=== PATIENT | female | born 1960 | race Caucasian/White ===

== ENCOUNTER → 2017-09-05 11:30 | Outpatient (CLI) | payer OTHER, SELFPAY ==
[2017-09-10 17:16] LABS: HPV Reflexed? NOT INDICATED
== END ==
PROVIDERS: Visit Provider Obstetrics & Gynecology
DX: Z12.4 Encounter for screening for malignant neoplasm of cervix (principal)
CPT/HCPCS: 88175; G0145

== ENCOUNTER → 2017-09-25 10:53 | Outpatient (CLI) | payer OTHER, SELFPAY ==
--- NOTE | 2017-09-25 10:55 | US_ITS ---
STUDY: ULTRASOUND BREAST - LEFT REASON FOR EXAM: Female, 56 years old. Pain in the left breast. TECHNIQUE: Axial and longitudinal images of the LEFT breast were performed with a high resolution ultrasound transducer. COMPARISON: Comparison is made with prior mammogram dated June 13, 2017. FINDINGS: LEFT Breast: The upper lateral aspect of the left breast was examined by ultrasound. There is a homogeneous fibroglandular tissue. No solid or cystic mass lesion is seen. US/Breast Limited Unilateral IMPRESSION: Unremarkable sonographic examination of the breast. ASSESSMENT CATEGORY: BIRADS Category 1: Negative. A letter regarding these results will be sent to the patient by the facility within 30 days. Electronically Signed: Hao Avendano MD at 12:41 EDT Tel [phone], Service support ,
== END ==
PROVIDERS: Family Provider Family Medicine; PCP Family Medicine; Visit Provider Surgery
DX: N64.4 Mastodynia (principal)
CPT/HCPCS: 76642

== ENCOUNTER → 2017-12-18 11:05 | Outpatient (CLI) | payer OTHER, SELFPAY ==
--- NOTE | 2017-12-18 11:05 | DT_ITS ---
This patient was seen during an EMR downtime December 16, 2017 - December 23, 2017. This patient may have a combination of paper and electronic documentation or all paper documentation. All documentation is viewable within the e-chart portion of [facility] for each patient visit.
[2017-12-23 12:25] LABS: Vitamin B12 508 pg/mL (211-911); Vitamin D,25 Hydroxy 23.1 ng/mL (29.95-100.01)
[2017-12-24 17:49] LABS: Hematocrit 45.1 % (37-47); Hemoglobin 14.8 g/dl (12.0-15.0); Mean Corp Hgb Conc 32.8 g/gl (32-36); Mean Corpuscular Hgb 30.6 pg (27.0-32.0); Mean Corpuscular Volume 93.4 fL (81-99); Mean Platelet Vol. 11.5 fl (6.2-12.0); Platelet Count 207 K/mm3 (150-450); RBC Distribution Width CV 12.8 % (11.6-14.6); RBC Distribution Width SD 42.9 fl (35.1-43.9); Red Blood Count 4.83 M/mm3 (4.2-5.4); Scan Indicated on CBC? Y/N NO; White Blood Count 4.6 K/mm3 (4.4-11.0)
[2017-12-24 17:51] LABS: BUN 11 mg/dL (7-18); BUN/Creat Ratio 15.9 RATIO (10-20); Creatinine, Serum 0.69 mg/dL (0.55-1.02); EST Glomerular Filtration Rate 94 mL/min (>60); Est Glom Filt Rate - Afr Amer 114 mL/min (>60); Globulin 3.9 g/dL (2.2-4.2); Glucose 87 mg/dL (74-106); Protein, Total 7.9 g/dL (6.4-8.2)
[2017-12-24 17:52] LABS: AST(SGOT) 23 U/L (15-37); Alanine Aminotransfer ALT/SGPT 37 U/L (13-56); Alkaline Phosphatase 65 U/L (45-117); Anion Gap 7 (5-15); Chloride 103 mmol/L (98-107); Cholesterol 245 mg/dL (200); High Density Lipoprotein 58 mg/dL; Magnesium 2.2 mg/dL (1.6-2.6); Sodium Level 139 mmol/L (136-145); Thyroid Stim Hormone (TSH) 1.02 uIU/mL (0.358-3.74); Triglycerides 176 mg/dL; Very Low Density Lipoprotein 35 mg/dL (5-40)
== END ==
PROVIDERS: Family Provider Family Medicine; PCP Family Medicine; Visit Provider Family Medicine
DX: R53.83 Other fatigue (principal); I10 Essential (primary) hypertension; R00.2 Palpitations
CPT/HCPCS: 36415; 80053; 80061; 82306; 82607; 83735; 84443; 85027

== ENCOUNTER → 2018-01-13 06:02 | Outpatient (CLI) | payer OTHER, SELFPAY ==
--- NOTE | 2018-01-13 09:59 | STRESSREP ---
Stress Test Report Exercise myocardial perfusion stress test. 57-year-old lady with a history of hypertension. Medications: Vitamins. Stress protocol: Normal sinus rhythm with rate of [address] changes noted resting blood pressures 142/90 mmHg. The patient exercised according to the regular Liam protocol for a total duration of 5 minutes and 31 seconds. Patient completed 2 minutes and 31 seconds to stage II of the Liam protocol. The maximum heart rate attained was 157 beats minute which is 96% of maximum heart rate excellent workload attained was 7 metabolic equivalents. At rest nonspecific ST-T wave changes were noted at peak exercise upsloping ST changes were noted with ST depression approximately 0.7 mm in the inferior leads with upsloping changes not diagnostic of ischemia. The resting blood pressure is 142/90 mmHg with a peak blood pressure 190/9074 mmHg rate pressure product was 29,800. Myocardial perfusion protocol. 14.8 mCi of technetium 99m sestamibi was injected at rest. Patient exercised according to regular Liam protocol for 5 minutes and 31 seconds at peak exercise 44.7 mCi of technetium 99m sestamibi was injected stress images were obtained stress and rest images were reconstructed and compared in the short axis vertical long horizontal long axis. Gated images were also obtained. Perfusion stress analysis; Review of the stress images demonstrate normal uptake of tracer noted in all areas of the myocardium. The resting images similarly demonstrate normal uptake of tracer noted in all areas of the myocardium. No areas of reversibility are noted suggest ischemia and no previous infarct is noted. Gated SPECT analysis: The gated ejection fraction is 75%. Conclusion: Normal exercise myocardial perfusion stress test at a moderate workload. No clinical angina noted Preserved ejection fraction.
--- NOTE | 2018-01-13 10:19 | STRESSREP_ITS ---
Stress Test Report Exercise myocardial perfusion stress test. 57-year-old lady with a history of hypertension. Medications: Vitamins. Stress protocol: Normal sinus rhythm with rate of [address] changes noted resting blood pressures 142/90 mmHg. The patient exercised according to the regular Liam protocol for a total duration of 5 minutes and 31 seconds. Patient completed 2 minutes and 31 seconds to stage II of the Liam protocol. The maximum heart rate attained was 157 beats minute which is 96% of maximum heart rate excellent workload attained was 7 metabolic equivalents. At rest nonspecific ST-T wave changes were noted at peak exercise upsloping ST changes were noted with ST depression approximately 0.7 mm in the inferior leads with upsloping changes not diagnostic of ischemia. The resting blood pressure is 142 /90 mmHg with a peak blood pressure 190/9074 mmHg rate pressure product was 29, 800. Myocardial perfusion protocol. 14.8 mCi of technetium 99m sestamibi was injected at rest. Patient exercised according to regular Liam protocol for 5 minutes and 31 seconds at peak exercise 44.7 mCi of technetium 99m sestamibi was injected stress images were obtained stress and rest images were reconstructed and compared in the short axis vertical long horizontal long axis. Gated images were also obtained. Perfusion stress analysis; Review of the stress images demonstrate normal uptake of tracer noted in all areas of the myocardium. The resting images similarly demonstrate normal uptake of tracer noted in all areas of the myocardium. No areas of reversibility are noted suggest ischemia and no previous infarct is noted. Gated SPECT analysis: The gated ejection fraction is 75%. Conclusion: Normal exercise myocardial perfusion stress test at a moderate workload. No clinical angina noted Preserved ejection fraction.
== END ==
PROVIDERS: Family Provider Family Medicine; PCP Family Medicine; Visit Provider Family Medicine
DX: I10 Essential (primary) hypertension (principal)
CPT/HCPCS: 78452; 93017; A9500; A4216

== ENCOUNTER 2018-06-09 06:58 | Day surgery (SDC) | payer OTHER, SELFPAY ==
[2018-06-09 07:15] VITALS: BP 126/82; PULSE 76; RESP 16; TEMP 37.1; O2SAT 100; BMI 32.8
--- NOTE | 2018-06-09 08:25 | PCM.HP.STD ---
Problem List (1) Screening for colon cancer Status: Acute History of Present Illness Date of Admission: 06/09/18 The patient is a 57 year old F who presents for screening colonoscopy. It has been 12 years since I did her last scope. Past Medical History Medical History: Medical History (Last Reviewed 06/09/18 @ 08:26 by Tha Felipe MD) No pertinent past medical history Allergies Sulfa (Sulfonamide Antibiotics) Allergy (Mild, Verified 06/04/18 09:30) rash Home Medications: Ambulatory Orders Medication Instructions Recorded Atorvastatin Calcium [Lipitor] 20 mg PO QHS 06/04/18 Losartan Potassium [Cozaar] 50 mg PO DAILY 06/04/18 Surgical History: Surgical History (Last Reviewed 06/09/18 @ 08:26 by Tha Felipe MD) History of surgical removal of skin lesion Z98.890, Z87.2 S/P colonoscopy Z98.890 S/P hysterectomy Z90.710 Smoking Status: Former smoker - *Family History Maternal Family History: Family History (Last Updated 09/24/17 @ 09:21 by Aracelis De La Cruz) Daughter Breast cancer Father Diabetes Mother Diabetes Heart disease History Items: No pertinent history Review of Systems Cardiovascular: Denies: Chest Pain, Chest Pressure, Chest Tightness, Palpitations Respiratory: Denies: Cough, Hemoptysis, Shortness of breath at rest, Shortness of breath upon exertion, Wheezing Gastrointestinal: Denies: Abdominal Pain, Constipation, Diarrhea, Hematemesis, Nausea, Melena, Vomiting VTE Information - Inpt Only VTE Present on Admission: No VTE Mechan Device Prophylaxis: None VTE Pharm Prophylaxis ordered?: No Reason prophylaxis not ordered:: Treatment Not Indicated Patient Problems: Active and Suspected Problems (Last Updated 09/24/17 @ 09:21 by Aracelis De La Cruz) Screening for colon cancer (Acute) - Physical Exam Lungs: Clear to auscultation Cardiovascular: Regular rate, Regular Rhythm, No murmurs Abdomen: Bowel Sounds Present, Soft, Non Tender, Non-Distended Vital Signs Temp Pulse Resp BP Pulse Ox 98.7 F 76 16 126/82 H 100 06/09/18 07:15 06/09/18 07:15 06/09/18 07:15 06/09/18 07:15 06/09/18 07:15 Oxygen Delivery Method Room Air Weight: 225 lb 1.471 oz Body Mass Index (BMI) 32.8 Assessment/Plan All Active Problems (Last Updated 09/24/17 @ 09:21 by Aracelis De La Cruz) Screening for colon cancer (Acute) My plan is to perform a screening colonoscopy on her.
[2018-06-09 08:26] VITALS: BP 119/49; BP 126/82; PULSE 83; RESP 16; TEMP 36.9; O2SAT 98
[2018-06-09 08:30] VITALS: BP 112/62; BP 126/82; PULSE 82; RESP 16; O2SAT 97
--- NOTE | 2018-06-09 08:30 | OP.ENDO_ITS ---
Patient Name: Anne Marie Cerna Procedure Date: 06/09/2018 8:02 AM Date of : 1960 Age: 57 Procedure: Colonoscopy Indications: Screening for colorectal malignant neoplasm Providers: Tha Felipe MD Medicines: See the Anesthesia note for documentation of the administered medications Patient Profile: This is a 57 year old female. Refer to note in patient chart for documentation of history and physical. Last Colonoscopy: more than 10 years ago. Complications: No immediate complications. Procedure: Pre-Anesthesia Assessment: - Prior to the procedure, a History and Physical was performed, and patient medications and allergies were reviewed. The patient's tolerance of previous anesthesia was also reviewed. The risks and benefits of the procedure and the sedation options and risks were discussed with the patient. All questions were answered, and informed consent was obtained. Prior Anticoagulants: The patient has taken no previous anticoagulant or antiplatelet agents. ASA Grade Assessment: III - A patient with severe systemic disease. After reviewing the risks and benefits, the patient was deemed in satisfactory condition to undergo the procedure. After I obtained informed consent, the scope was passed under direct vision. Throughout the procedure, the patient's blood pressure, pulse, and oxygen saturations were monitored continuously. The Colonoscope was introduced through the anus and advanced to the cecum, identified by appendiceal orifice and ileocecal valve. The colonoscopy was performed without difficulty. The patient tolerated the procedure well. The quality of the bowel preparation was good. Scope In: 8:13:17 AM Scope Withdrawal Time 0 hours 6 minutes 6 seconds Scope Out: 8:23:46 AM Total Procedure Duration Time 0 hours 10 minutes 29 seconds Findings: A few small-mouthed diverticula were found in the sigmoid colon. Non-bleeding internal hemorrhoids were found during retroflexion. The hemorrhoids were mild and small. The retroflexed view of the distal rectum and anal verge was normal and showed no anal or rectal abnormalities. Impression: - Diverticulosis in the sigmoid colon. - Non-bleeding internal hemorrhoids. - The distal rectum and anal verge are normal on retroflexion view. - No specimens collected. Recommendation: - Discharge patient to home. - Resume previous diet. - Continue present medications. - Repeat colonoscopy in 10 years for screening purposes. - Return to primary care physician at appointment to be scheduled. Procedure Code(s): --- Professional --- 94398, Colonoscopy, flexible; diagnostic, including collection of specimen(s) by brushing or washing, when performed (separate procedure) Diagnosis Code(s): --- Professional --- Z12.11, Encounter for screening for malignant neoplasm of colon K64.8, Other hemorrhoids K57.30, Diverticulosis of large intestine without perforation or abscess without bleeding CPT copyright 2017 [employer]. All rights reserved. The codes documented in this report are preliminary and upon area loss prevention manager review may be revised to meet current compliance requirements. MD Tha Ocampo MD 06/09/2018 8:29:37 AM This report has been signed electronically. Number of Addenda: 0 Note Initiated On: 06/09/2018 8:02 AM
[2018-06-09 08:35] VITALS: BP 124/62; BP 126/82; PULSE 86; RESP 16; O2SAT 97
[2018-06-09 08:40] VITALS: BP 124/70; BP 126/82; RESP 16; TEMP 36.6; O2SAT 97
[2018-06-09 09:20] VITALS: BP 126/82
== END 2018-06-09 09:21 | disposition home or self-care (01) ==
LOC: EN 06:59 → AC 07:00
PROVIDERS: Family Provider Family Medicine; PCP Family Medicine; Referring Provider Surgery; Visit Provider Surgery
PROC: 0DJD8ZZ Inspection of Lower Intestinal Tract, Via Natural or Artificial Opening Endoscopic (ICD-10-PCS; CPT 45378; principal; 2018-06-09 07:55)
DX: Z12.11 Encounter for screening for malignant neoplasm of colon (principal); K57.30 Diverticulosis of large intestine without perforation or abscess without bleeding; K64.8 Other hemorrhoids; E78.00 Pure hypercholesterolemia, unspecified; Z87.891 Personal history of nicotine dependence; Z79.899 Other long term (current) drug therapy
CPT/HCPCS: 45378; J7120

== ENCOUNTER → 2018-12-23 11:28 | Outpatient (CLI) | payer OTHER, SELFPAY ==
[2018-12-23 15:31] LABS: Hematocrit 41.7 % (37-47); Hemoglobin 13.7 g/dl (12.0-15.0); Mean Corp Hgb Conc 32.9 g/gl (32-36); Mean Corpuscular Hgb 30.2 pg (27.0-32.0); Mean Corpuscular Volume 92.1 fL (81-99); Mean Platelet Vol. 11.5 fl (6.2-12.0); Platelet Count 246 K/mm3 (150-450); RBC Distribution Width CV 12.9 % (11.6-14.6); RBC Distribution Width SD 42.4 fl (35.1-43.9); Red Blood Count 4.53 M/mm3 (4.2-5.4); White Blood Count 5.4 K/mm3 (4.4-11.0)
[2018-12-23 15:35] LABS: Scan Indicated on CBC? Y/N NO
[2018-12-23 15:52] LABS: AST(SGOT) 18 U/L (15-37); Alanine Aminotransfer ALT/SGPT 26 U/L (13-56); Albumin, Serum 3.8 g/dL (3.2-5.0); Alkaline Phosphatase 69 U/L (45-117); Anion Gap 6 (5-15); BUN 12 mg/dL (7-18); BUN/Creat Ratio 19.3 RATIO (10-20); Calcium,Total 8.8 mg/dL (8.5-10.1); Chloride 106 mmol/L (98-107); Creatinine, Serum 0.62 mg/dL (0.55-1.02); EST Glomerular Filtration Rate 105 mL/min (>60); Est Glom Filt Rate - Afr Amer 127 mL/min (>60); Glucose 85 mg/dL (74-106); Iron 114 ug/dL (50-170); Protein, Total 7.8 g/dL (6.4-8.2); Sodium Level 136 mmol/L (136-145); Thyroid Stim Hormone (TSH) 1.29 uIU/mL (0.358-3.74)
[2018-12-23 16:04] LABS: Erythrocyte Sedimentation Rate 22 mm/hr (0-30)
[2018-12-23 16:14] LABS: Vitamin B12 556 pg/mL (211-911); Vitamin D,25 Hydroxy 25.2 ng/mL (29.95-100.01)
== END ==
PROVIDERS: Family Provider Family Medicine; PCP Family Medicine; Referring Provider Family Medicine; Visit Provider Family Medicine
DX: R53.83 Other fatigue (principal); R23.2 Flushing; I10 Essential (primary) hypertension; E55.9 Vitamin D deficiency, unspecified
CPT/HCPCS: 36415; 80053; 82306; 82533; 82607; 83540; 84403; 84443; 85027; 85652

== ENCOUNTER → 2019-09-17 09:27 | Outpatient (CLI) | payer OTHER, SELFPAY ==
[2019-09-17 10:29] LABS: Vitamin D,25 Hydroxy 35.1 ng/mL
[2019-09-17 10:32] LABS: AST(SGOT) 18 U/L (15-37); Alanine Aminotransfer ALT/SGPT 29 U/L (13-56); Albumin, Serum 3.7 g/dL (3.2-5.0); Alkaline Phosphatase 66 U/L (45-117); Anion Gap 5 (5-15); BUN 12 mg/dL (7-18); Calcium,Total 8.9 mg/dL (8.5-10.1); Chloride 109 mmol/L (98-107); Cholesterol 196 mg/dL (200); Creatinine, Serum 0.63 mg/dL (0.55-1.02); EST Glomerular Filtration Rate 103 mL/min (>60); Est Glom Filt Rate - Afr Amer 125 mL/min (>60); Globulin 3.8 g/dL (2.2-4.2); Glucose 88 mg/dL (74-106); High Density Lipoprotein 69 mg/dL; Potassium 3.7 mmol/L (3.5-5.1); Protein, Total 7.5 g/dL (6.4-8.2); Sodium Level 139 mmol/L (136-145); Triglycerides 103 mg/dL; Very Low Density Lipoprotein 21 mg/dL (5-40)
== END ==
PROVIDERS: PCP Family Medicine; Referring Provider Family Medicine; Visit Provider Family Medicine
DX: I10 Essential (primary) hypertension (principal); E78.2 Mixed hyperlipidemia; E55.9 Vitamin D deficiency, unspecified
CPT/HCPCS: 36415; 80053; 80061; 82306

== ENCOUNTER → 2020-01-01 12:59 | Outpatient (CLI) | payer OTHER, SELFPAY ==
--- NOTE | 2020-01-01 13:17 | BI_ITS ---
MAMMOGRAPHY - BILATERAL DIAGNOSTIC REASON FOR EXAM: Female, 59 years old. Left periareolar tenderness. PERTINENT HISTORY: Daughter with breast cancer. TECHNIQUE: Digital bilateral breast ector (3D mammographic acquisition) in the CC and MLO projections. 2-D mediolateral oblique (MLO) and craniocaudad (CC) views of both breasts were obtained. CAD: Full Field Digital Mammography with Computer Added Detection was performed. COMPARISON: Comparison is made with prior examination dated June 13, 2017 and March 27, 2016. FINDINGS: Breast Composition: The breasts are heterogeneously dense, which may obscure small masses. There are no dominant masses or suspicious calcifications. Stable benign-appearing bilateral axillary lymph nodes. Stable 7.2 mm x 6.9 mm nodule with calcific rim in the medial inferior aspect of the left breast. No other significant abnormalities are identified. There has been no significant change since the prior study. BI/DIAG MAMM W/CAD, BILAT IMPRESSION: Stable bilateral diagnostic mammogram. With the patient''s history of left parahilar tenderness, correlation with ultrasound is recommended ASSESSMENT CATEGORY: BIRADS Category 0: Incomplete. Need additional imaging evaluation. A letter regarding these results will be sent to the patient by the facility within 30 days. Approximately 10% of breast cancers are not detected by mammography. A normal mammogram should not delay biopsy of a clinically suspicious abnormality. Electronically Signed: Hao Avendano, at 14:19 EDT , Service support ,
--- NOTE | 2020-01-01 13:17 | US_ITS ---
STUDY: ULTRASOUND BREAST - LEFT REASON FOR EXAM: Female, 59 years old. Palpable lump left breast. TECHNIQUE: Axial and longitudinal images of the LEFT breast were performed with a high resolution ultrasound transducer. # OF IMAGES: 48 COMPARISON: Comparison is made with prior mammogram done earlier today. FINDINGS: LEFT Breast: There is a 7 mm x 7 mm x 5 mm hypoechoic nodule with some posterior acoustical shadowing at the 8:00 position of the breast at 5 cm from the nipple. I suspect a calcific rim anteriorly. This corresponds to the mammographic abnormality. US/Breast Limited Unilateral IMPRESSION: 7 mm x 7 mm x 5 mm hypoechoic nodule with posterior acoustical shadowing at the 8:00 position of the breast at 5 cm from nipple. This corresponds to the calcified nodule in the inferior medial aspect of the left breast. Routine mammographic follow-up is recommended. ASSESSMENT CATEGORY: BIRADS Category 2: Benign. A letter regarding these results will be sent to the patient by the facility within 30 days. Electronically Signed: Hao Avendano, at 15:10 EDT , Service support ,
== END ==
PROVIDERS: PCP Family Medicine; Referring Provider Obstetrics & Gynecology; Visit Provider Obstetrics & Gynecology
DX: N63.20 Unspecified lump in the left breast, unspecified quadrant (principal); N64.4 Mastodynia
CPT/HCPCS: 76642; 77062; 77066; G0279

== ENCOUNTER → 2020-01-18 11:08 | Outpatient (CLI) | payer OTHER, SELFPAY ==
--- NOTE | 2020-01-18 11:18 | RAD_ITS ---
STUDY: X-RAY - LEFT SHOULDER REASON FOR EXAM: Female, 59 years old. neck and shoulder pain, limited range of motion TECHNIQUE: 4 view(s) of the shoulder. COMPARISON: None. FINDINGS: Normal glenohumeral articulation. There is degenerative arthrosis of the acromioclavicular joint without inferior osseous spur formation. Normal acromion. Normal humeral head and visualized proximal humerus. The soft tissue structures are unremarkable. Normal visualized pulmonary apex. RAD/Shoulder min 2 Views IMPRESSION: Acromioclavicular osteoarthritis. Electronically Signed: Kenneth Morales MD at 21:48 EDT Tel , Service support ,
--- NOTE | 2020-01-18 11:19 | RAD_ITS ---
STUDY: X-RAY - CERVICAL SPINE REASON FOR EXAM: Female, 59 years old. neck and shoulder pain, limited range of motion TECHNIQUE: 5 view(s) of the cervical spine were obtained. COMPARISON: None FINDINGS: Normal anterior atlantoaxial articulation. Normal odontoid process. Normal cervical lordosis. Normal vertebral bodies and endplates. Degenerative disc disease at the C5-6 level. Multilevel facet disease. Normal visualized intervertebral neuroforamina. The soft tissue structures are unremarkable. RAD/Cerv Spine 4 or 5 Views IMPRESSION: Degenerative disc disease at the C5-6 level. Multilevel facet disease. Electronically Signed: Kenneth Morales MD at 22:21 EDT Tel , Service support ,
[2020-01-18 12:58] LABS: Erythrocyte Sedimentation Rate 17 mm/hr (0-30)
[2020-01-18 14:48] LABS: CRP < 2.90 mg/L (0.0-3.0); Rheumatoid Factor < 10.0 IU/mL (<15); T4 Free Direct 0.95 ng/dL (0.76-1.46); Thyroid Stim Hormone (TSH) 1.33 uIU/mL (0.358-3.74)
[2020-01-19 15:41] LABS: ANTINUCLEAR ANTIBODIES DIRECT Negative (Negative)
== END ==
PROVIDERS: PCP Family Medicine; Visit Provider Family Medicine
DX: M19.012 Primary osteoarthritis, left shoulder (principal); M50.322 Other cervical disc degeneration at C5-C6 level; E66.9 Obesity, unspecified
CPT/HCPCS: 36415; 72050; 73030; 82533; 84439; 84443; 85652; 86038; 86140; 86431

== ENCOUNTER 2020-04-11 15:30 | Outpatient (RCR) | payer OTHER, SELFPAY ==
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
--- NOTE | 2020-03-09 09:37 | HP.PTREVAL ---
Dr. Bruce Verduzco MD, It has been my pleasure to treat JD ESCAMILLA over the last 12 visits for CERVICAL DDD.. Please see the progress note below for an update on the physical therapy plan of care! Subjective: PATIENT REPORTS SHE HAS A LOT MORE ROM IN HER SHOULDERS NOW COMPARED TO WHEN SHE STARTED PT. SHE ALSO REPORTS SHE ISN'T HAVING SPASMS NEAR BAD IN HER ARMS. I THINK IT IS WORKING. PATIENT REPORTS INCREASED PAIN LAST WEEK AND SHE RELATES THE INCREASED PAIN TO FORGETTING TO TAKE HER COq10 AND BEING VERY BUSY MOE. PATIENT REPORTS SHE WOULD LIKE TO CONTINUE PT. PATIENT REPORTS THE INCREASED ROM ALLOWS HER TO ACTUALLY GET DRESSED NOW MOST DAYS. PATIENT REPORTS HER USE TO HAVE TO DRESS HER. STATES SHE STILL CAN'T WIPE HERSELF AFTER A BM THOUGH. PATIENT REPORTS SHE IS STILL SLEEPING IN THE RECLINER QUITE A FEW NIGHTS. PATIENT REPORTS SHE HAS BEEN ACTIVE MOE BEANS, FREEZING SWEET [place], MOWING, ETC. DID SOME BABYSITTING FOR 3 YEAR OLD GRAND-DAUGHTER TOO. MOM FELL THIS WEEKEND AND HAD TO HELP GET HER UP. Objective/Function: PATIENT WAS SEEN TODAY FOR RE-ASSESSMENT OF PROGRESS TOWARD THE SET PT GOALS AND THE NEED FOR FURTHER PHYSICAL THERAPY VS READINESS FOR DISCHARGE. PATIENT IS MAKING PROGRESS TOWARD ALL SET PT GOALS AND IS A GOOD CANDIDATE TO CONTINUE PT BASED ON PROGRESS MADE AND ROOM FOR FURTHER IMPROVEMENT. UPON EXAM TODAY: Motor deficit: JASMYN UE WEAKNESS LEFT > RIGHT AND TESTING IS PAIN LIMITED JASMYN. LEFT SHLD GROSSLY 2+/5, RIGHT 3-/5. JASMYN ELBOW, WRIST AND HANDS 5/5. 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 Sensory deficit: JASMYN UE LIGHT TOUCH SENSATION INTACT AND SYMMETRICAL. ROM deficit: RIGHT SHLD ELEVATION TO 146 DEG AND LEFT 132 DEG. LEFT SHLD IR/ER = 55 DEG/15 DEG AND RIGHT SHLD IR/ER = 68/41 DEG (WITH 70 DEG ABD). PAIN WITH TESTING OF JASMYN UE ROM TESTING. Reflexes: 2/3 JASMYN UE;S. Dural Signs: POSITIVE JASMYN UE'S. Cervical Mvmt Loss: Flex: NIL. Pro: NIL. Ext: MOD. Ret: MOD. RSB: MOD. LSB: KENJI. R Rot: MIN. L Rot: MIN. PATIENT REPORTS INCREASED NECK AND SHOULDER PAIN WITH CERVICAL ROM TESTING ALL PLANES AND LEFT SB > ROTATION. Postural strength: POOR. HEP INST FOR JASMYN UE SLEEPER STRETCHING FOR IR AND ER. Plan Plan: CONT PT 3X'S A WK X 3 WKS. NO ULTRASOUND. IF-ESTIM WITH CP OR MH NEEDED, POSTURE CORRECTION/STRENGTHENING, INSTRUCTION IN APPROPRIATE BODY MECHANICS AND ACTIVITY MODIFICATIONS. JASMYN UE ROM, STRETCHING AND STRENGTHENING. HEP INSTRUCTION. INCLUDE THE FOLLOWING TOLERATED: REP RET IN SITTING. REP RET IN LYING. SCAP SQUEEZES. DEEP NECK FLEXOR LIFT. PRONE W'S. UE WALL SLIDES. PRONE ROWS. UE TBAND WALL WALKS. ANTERIOR/MIDDLE SCALENE STRETCH. UPPER TRAP STRETCH. LEVATOR SCAPULAE STRETCH. CHEST/PEC MAJOR AND MINOR STRETCH Goals Goal 1:: DECREASE C/O NECK AND UE SX'S Goal Time Frame: 4-6 Weeks Goal Progress: Progressing Goal 2:: IMPROVE PERSONAL CARE, LIFTING, READING, SLEEP, WORK AND RECREATIONAL FUNCTION Goal Time Frame: 4-6 Weeks Goal Progress: Progressing Goal 3:: INSTRUCT IN PROPHYLAXIS Goal Time Frame: 4-6 Weeks Goal Progress: Progressing Anticipated Interventions Patient/Client Instruction: Educate patient on: Condition, Plan of Care, Risk Factors, Benefits of Fitness Program For the Purpose of:: To improve self management Therapeutic Exercise to Include: Strength training, Body mechanics, Postural training, Flexibilty training, Neuromotor development, Active ROM, Scapular Strength/Stabilization For the Purpose of:: To decrease pain, To increase ROM, To improve muscle performance and motor function, To increase tolerance to activity/condition/position, To improve ability of physical actions for home/community/work/leisure TENS: Yes IF ES: Yes Cryotherapy (ice pack, ice massage): Yes Thermo therapy (hot pack): Yes Ultrasound (thermal/non thermal): No - NO US For the Purpose of:: To decrease pain, To decrease swelling/inflammation, To increase ROM, To improve nutrient delivery to tissue Please do not hesitate to contact me at [phone] by phone or if you have questions or concerns regarding this new plan of care! Sincerely, Elsa Maher, PT, Cert MDT
--- NOTE | 2020-04-11 17:23 | HP.PTDCSUM ---
It has been my pleasure to treat JD ESCAMILLA referred by Dr. Bruce Talavera MD, with the diagnosis of CERVICAL DDD. for a total of 21 visit(s). Discharge Date: Please see the following information for a summary of their discharge status. Subjective: PATIENT REPORTS SHE IS HAVING LESS PAIN PUTTING HER HAIR UP, GETTING OUT OF BED AND THINGS LIKE THAT. STATES SHE SAW HER DOCTOR LAST WEEK AND HE TOLD HER JUST TO CONTINUE HER EX'S AND SEE WHERE THAT TAKES HER BEFORE CONSIDERING ANYTHING ELSE. PATIENT REPORTS SHE PLANS TO JOIN [facility] AND TOLERATED THE GYM EX'S GIVEN LAST SESSION WELL. PATIENT REPORTS SHE WOULD LIKE TO TRY TO CONTINUE ON HER OWN AT THIS POINT TO SAVE SOME OF HER ALLOWED PT VISITS. R SH Pain Intensity (Out of 10): 1 L SH Pain Intensity (Out of 10): 1 Neck Pain Intensity (Out of 10): 0 % Improvement: 70 Objective/Function: PATIENT WAS SEEN TODAY FOR RE-ASSESSMENT OF PROGRESS TOWARD THE SET PT GOALS AND THE NEED FOR FURTHER PHYSICAL THERAPY VS READINESS FOR DISCHARGE. UPON EXAM TODAY: Motor deficit: JASMYN UE WEAKNESS LEFT > RIGHT AND TESTING IS PAIN LIMITED JASMYN. LEFT SHLD GROSSLY 3-/5, RIGHT 3/5. JASMYN ELBOW, WRIST AND HANDS 5/5. 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 Sensory deficit: JASMYN UE LIGHT TOUCH SENSATION INTACT AND SYMMETRICAL. ROM deficit: RIGHT SHLD ELEVATION TO 159 DEG AND LEFT 147 DEG. LEFT SHLD IR/ER = 59 DEG/22 DEG AND RIGHT SHLD IR/ER = 75/55 DEG (WITH 70 DEG ABD). PAIN WITH TESTING OF JASMYN UE ROM TESTING. Dural Signs: POSITIVE JASMYN UE'S. Cervical Mvmt Loss: Flex: NIL. Pro: NIL. Ext: MOD. Ret: MOD. RSB: MOD. LSB: MOD. R Rot: MIN. L Rot: MIN. PATIENT DENIES RUIZ WITH CERVICAL ROM TESTING TODAY. ISSUED GYM PROGRAM AND ADDED NUSTEP TO GYM PROGRAM. PATIENT CONTINUES TO HAVE SIGNIFICANT SYMPTOMS DETAILED ABOVE AND HAS FURTHER FOLLOW UP WITH DR. TALAVERA PENDING. Goal 1:: DECREASE C/O NECK AND UE SX'S Goal Progress: Progressing Goal 2:: IMPROVE PERSONAL CARE, LIFTING, READING, SLEEP, WORK AND RECREATIONAL FUNCTION Goal Progress: Progressing Goal 3:: INSTRUCT IN PROPHYLAXIS Goal Progress: Progressing Plan: D/C TO INDEP GYM AND HOME EX PROGRAMS. PATIENT IS AGREEABLE. If there are questions or concerns regarding this patient's physical therapy, please feel free to call me at [phone]. Thank you for the referral of this patient. Sincerely, Elsa Maher, PT, Cert MDT
== END 2020-04-11 19:00 | disposition home or self-care (01) ==
LOC: PT 15:30
PROVIDERS: PCP Family Medicine; Referring Provider Family Medicine; Visit Provider Family Medicine
DX: M50.30 Other cervical disc degeneration, unspecified cervical region (principal)
CPT/HCPCS: 97012; 97014; 97110; 97112; 97162; 97164; 97530; G0283

== ENCOUNTER → 2020-04-20 | Outpatient (CLI) | payer OTHER, SELFPAY ==
[2020-04-20 12:27] LABS: Vitamin D,25 Hydroxy 34.1 ng/mL
[2020-04-20 12:46] LABS: AST(SGOT) 32 U/L (15-37); Alanine Aminotransfer ALT/SGPT 49 U/L (13-56); Alkaline Phosphatase 77 U/L (45-117); Anion Gap 6 (5-15); BUN 12 mg/dL (7-18); BUN/Creat Ratio 20.5 RATIO (10-20); Calcium,Total 9.1 mg/dL (8.5-10.1); Chloride 105 mmol/L (98-107); Cholesterol 203 mg/dL (200); Creatinine, Serum 0.58 mg/dL (0.55-1.02); EST Glomerular Filtration Rate 112 mL/min (>60); Est Glom Filt Rate - Afr Amer 136 mL/min (>60); Glucose 91 mg/dL (74-106); High Density Lipoprotein 72 mg/dL; Sodium Level 137 mmol/L (136-145); Triglycerides 125 mg/dL; Very Low Density Lipoprotein 25 mg/dL (5-40)
== END | disposition home or self-care (01) ==
LOC: MFPLAB 09:49
PROVIDERS: PCP Family Medicine; Referring Provider Family Medicine; Visit Provider Family Medicine
DX: E78.2 Mixed hyperlipidemia (principal); F32.9 Major depressive disorder, single episode, unspecified
CPT/HCPCS: 36415; 80053; 80061; 82306

== ENCOUNTER → 2020-08-08 14:18 | Outpatient (CLI) | payer OTHER, SELFPAY | PROVIDERS: PCP Family Medicine; Visit Provider Family Medicine | DX: Z20.828 Contact with and (suspected) exposure to other viral communicable diseases (principal) | CPT/HCPCS: 87633; 87635; U0003 ==

== ENCOUNTER → 2020-09-07 11:35 | Outpatient (CLI) | payer OTHER, SELFPAY ==
[2020-09-07 16:38] LABS: Estradiol 16.8 pg/mL; Thyroid Stim Hormone (TSH) 0.93 uIU/mL (0.358-3.74)
== END ==
PROVIDERS: PCP Family Medicine; Referring Provider Family Medicine; Visit Provider Family Medicine
DX: R68.82 Decreased libido (principal); E66.9 Obesity, unspecified
CPT/HCPCS: 36415; 82533; 82670; 84403; 84443

== ENCOUNTER 2020-10-06 10:56 | Outpatient (RCR) | payer OTHER, SELFPAY | END 2020-10-12 23:59 | LOC: NS 10:56 | PROVIDERS: PCP Family Medicine; Visit Provider Family Medicine | DX: Z71.3 Dietary counseling and surveillance (principal); E66.9 Obesity, unspecified; Z68.38 Body mass index [BMI] 38.0-38.9, adult | CPT/HCPCS: 97802 ==

== ENCOUNTER 2020-10-25 11:26 | Outpatient (RCR) | payer OTHER, SELFPAY | END 2020-11-11 23:59 | LOC: NS 11:26 | PROVIDERS: PCP Family Medicine; Visit Provider Family Medicine | DX: Z71.3 Dietary counseling and surveillance (principal); E66.9 Obesity, unspecified; Z68.38 Body mass index [BMI] 38.0-38.9, adult | CPT/HCPCS: 97803 ==

== ENCOUNTER → 2021-01-27 12:17 | Outpatient (CLI) | payer OTHER, SELFPAY ==
--- NOTE | 2021-01-27 12:19 | RAD_ITS ---
HISTORY: PAIN EXAMINATION/TECHNIQUE: XR Knee Complete 4 Views or More: COMPARISON: None FINDINGS: BONES/JOINTS: No acute fracture or dislocation. Moderately severe tricompartmental degenerative changes. No sclerotic or destructive changes observed. SOFT TISSUES: No soft tissue swelling or gas. No radiopaque foreign body. RAD/Knee 4 or More Views IMPRESSION: Moderately severe tricompartmental degenerative changes. at 1528 Reported and signed by: Raheem Jose MD Electronically Signed: Raheem Jose MD at 15:27 EDT Tel , Service support ,
== END ==
PROVIDERS: PCP Family Medicine; Referring Provider Family Medicine; Visit Provider Family Medicine
DX: M17.11 Unilateral primary osteoarthritis, right knee (principal)
CPT/HCPCS: 73564

== ENCOUNTER → 2021-03-09 11:13 | Outpatient (CLI) | payer OTHER, SELFPAY ==
[2021-03-09 13:06] LABS: Anion Gap 8 (5-15); BUN 8 mg/dL (7-18); BUN/Creat Ratio 15.1 RATIO (10-20); Calcium,Total 8.9 mg/dL (8.5-10.1); Chloride 108 mmol/L (98-107); Cholesterol 180 mg/dL (200); Creatinine, Serum 0.53 mg/dL (0.55-1.02); EST Glomerular Filtration Rate 125 mL/min (>60); Est Glom Filt Rate - Afr Amer 151 mL/min (>60); Glucose 89 mg/dL (74-106); High Density Lipoprotein 58 mg/dL; Potassium 3.6 mmol/L (3.5-5.1); Sodium Level 140 mmol/L (136-145); Triglycerides 161 mg/dL; Very Low Density Lipoprotein 32 mg/dL (5-40)
== END ==
PROVIDERS: PCP Family Medicine; Visit Provider Family Medicine
DX: I10 Essential (primary) hypertension (principal); E78.2 Mixed hyperlipidemia
CPT/HCPCS: 36415; 80048; 80061

== ENCOUNTER → 2021-04-05 07:07 | Outpatient (CLI) | payer OTHER, SELFPAY ==
--- NOTE | 2021-04-04 16:32 | BI_ITS ---
MAMMOGRAPHY - BILATERAL SCREENING REASON FOR EXAM: Female, 60 years old. Routine annual screening examination. PERTINENT HISTORY: Daughter with breast cancer. TECHNIQUE: Digital bilateral breast [place] (3D mammographic acquisition) in the CC and MLO projections. 2-D mediolateral oblique (MLO) and craniocaudad (CC) views of both breasts were obtained. CAD: Full Field Digital Mammography with Computer Added Detection was performed. COMPARISON: Comparison is made with prior study dated 01/01/2020 and 06/13/2017. FINDINGS: Breast Composition: The breasts are heterogeneously dense, which may obscure small masses. There are no dominant masses or suspicious calcifications. Stable 7 mm x 7 mm well-defined nodule with a calcific rim in the medial inferior aspect of the left breast suggestive of a calcified fibroadenoma. No other significant abnormalities are identified. There has been no significant change since the prior study. BI/SCRN MAMM (CAD)W/[place] BILAT IMPRESSION: Stable bilateral screening mammogram. Yearly follow-up mammogram recommended. (A) ASSESSMENT CATEGORY: BIRADS Category 2: Benign. A letter regarding these results will be sent to the patient by the facility within 30 days. Approximately 10% of breast cancers are not detected by mammography. A normal mammogram should not delay biopsy of a clinically suspicious abnormality. [id number] Electronically Signed: Hao Avendano MD at 8:37 EDT , Service support ,
== END ==
PROVIDERS: PCP Family Medicine; Referring Provider Obstetrics & Gynecology; Visit Provider Obstetrics & Gynecology
DX: Z12.31 Encounter for screening mammogram for malignant neoplasm of breast (principal); Z80.3 Family history of malignant neoplasm of breast
CPT/HCPCS: 77063; 77067

== ENCOUNTER 2021-09-28 09:29 | Outpatient (RCR) | payer OTHER, SELFPAY ==
--- NOTE | 2021-09-28 11:20 | HP.PTEVAL_ITS ---
Patient's Visit Information JD ESCAMILLA is a 60 year old F referred to Physical Therapy by Dr. Jeison Finley DO with a diagnosis of Prehab for right knee. Date of Evaluation: 09/28/21 Physical Therapist: Rosa M Mathur DPT - Visit Plan Frequency: 1x/Week Duration: 1 Week Plan: Prehab for Right TKR. HEP Given IE: Seated hamstring stretch, knee flexion stretch, bolster extn stretch, ankle pumps, quad sets, glut sets, supine 90/90 hamstring stretch, supine bolster extension stretch, heel slide, SLR - Subjective Patient reports that she is scheduled for surgery Right TKR October [address] Cervantes. She has been doing with right knee pain for years - but since January of last year it has been really bad. She has a lot of numbness and is taking pain medication (Meloxicam- tries not to take it daily). 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 Worst: 8/10 Agg: walking, sit to stand, stairs. Best: 3/10 Eases: Meloxicam, ice, elevation, getting off of it. Does report buckling and feels unstable. Pain is on the medial side and into the calf. Describes the pain as burning. No N/T in the toes. At home she does not wear a brace but any time she goes out she puts the brace on. Does not have a walker or cane- but Lilliam at [employer] office will get it going for her. Mobile home- with 4 stairs to enter- does have a hand rail. Lives with her but he is going to be working but has friends that will check in on her. She is fully I prior to surgery- drives. PMHx/Meds: none since she saw Dr. Cervantes 09/25/21. 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 - Objective Posture: FH, RS- can correct with verbal cues but does not maintain due to core weakness. Stairs: asc/desc 8 non recip with 1 HR. HR/TR: able with UE A- discomfort in posterior knee with TR. SLS: unable but does weigh shift- report buckling and pain. ROM: 20-120 degrees with pain at end range. Flex: HS: severe, gastroc: severe. Palpation: tender along medial joint line. Strength: Core: fair, Hip: 4+/5, SLR: moderate lag due to ROM deficit, Quad strength: quad set visible, Knee: Flexion: 50.0 Extn: 55.0 - Balance/Special Test Scores Lower Extremity Functional Score: 25 - Goals Goal 1:: Patient will be I with HEP and progression Goal Time Frame: 4-6 Weeks - Rehabilitation Potential Physical Therapy Diagnosis: Patient presents with hypomobility- she has decreased pain free ROM, LE and core strength/stabilization, flex and muscular endurance leading to abnormal gait pattern and decreased ability to perform ADL's. Rehabilitation Potential: Good - Anticipated Interventions Therapeutic Exercise to Include: Strength training, Endurance training, Balance training, Coordination, Agility training, Body mechanics, Postural training, Flexibilty training, Gait and locomotor training, Neuromotor development, Passive ROM, Active ROM, Dynamic Lumbar Stabilization, Scapular Strength/Stabilization For the Purpose of:: To improve muscle performance and motor function Thank you for the opportunity to evaluate your patient. For Medicare and Medicare HMO plans, please review the plan of care and approve it. It will need to be FAXED BACK to us at [phone] for Medicare purposes. For Medicare only, by signing this I certify the plan of care. Please let me know if there are questions or concerns regarding this plan of care. Physician Signature: Date:
--- NOTE | 2021-12-28 14:41 | HP.PT.NRP ---
JD ESCAMILLA was seen in my office for initial evaluation on 09/28/21. The following Plan of Care was established for this patient: Initial Frequency: 1x/Week Initial Duration: 1 Week Therapeutic Exercise to Include: Strength training, Endurance training, Balance training, Coordination, Agility training, Body mechanics, Postural training, Flexibilty training, Gait and locomotor training, Neuromotor development, Passive ROM, Active ROM, Dynamic Lumbar Stabilization, Scapular Strength/Stabilization For the Purpose of:: To improve muscle performance and motor function This patient was last seen in our office . Pertinent comments regarding their Physical therapy will appear below: Patient has not attended PT in over 30 days- having TKR- appropriate to be d/c and return to MD for further evaluation as needed. At this point I will be discontinuing this patient from physical therapy. I would be happy to see this patient again in the future if found appropriate by the physician. Thank you! Rosa M Mathur, DPT Balance/Gait/Functional tests - Balance/Special Test Scores Lower Extremity Functional Score: 25 Tug Test: <10 sec.=free mobile
== END 2021-09-28 19:00 | disposition home or self-care (01) ==
LOC: PT 09:29
PROVIDERS: PCP Family Medicine; Referring Provider Orthopaedic Surgery; Visit Provider Orthopaedic Surgery
DX: M17.11 Unilateral primary osteoarthritis, right knee (principal)
CPT/HCPCS: 97110; 97161

== ENCOUNTER 2021-09-29 19:04 | Outpatient (CLI) | payer OTHER, SELFPAY ==
--- NOTE | 2021-09-29 19:07 | CT_ITS ---
There is degenerative change with marked narrowing of the medial compartment of the right knee with osteophyte formation. Right hip is unremarkable Right ankle demonstrates degenerative changes at the medial aspect of the tibial articular surface. IMPRESSION: Severe degenerative changes of the right knee involving the medial compartment. Electronically Signed: Mak Dupree MD at 5:31 EDT , CT/Extremity Lower without Contra
== END 2021-09-29 23:59 | disposition home or self-care (01) ==
LOC: CT 19:06
PROVIDERS: PCP Family Medicine; Visit Provider Orthopaedic Surgery
DX: M17.11 Unilateral primary osteoarthritis, right knee (principal)
CPT/HCPCS: 73700

== ENCOUNTER 2021-10-17 10:33 | Observation (INO) | payer OTHER, SELFPAY ==
--- NOTE | 2021-10-05 09:41 | EKG12_ITS ---
Test Reason : PREOP Blood Pressure : / mmHG Vent. Rate : 070 BPM Atrial Rate : 070 BPM P-R Int : 128 ms QRS Dur : 088 ms QT Int : 374 ms P-R-T Axes : 037 070 039 degrees QTc Int : 403 ms Normal sinus rhythm Nonspecific ST abnormality Abnormal ECG Confirmed by LOKI TREVINO, KAYCE ([id number]), video editor ROMI OCHOA ([id number]) on 10/06/2021 8:52:59 AM Referred By: Jeison Finley Confirmed By:KAYCE MANJARREZ MD
[2021-10-05 11:06] LABS: Absolute Lymphocyte Count 1.45 X10^3/uL (0.83-4.51); Absolute Neutrophil Count 2.9 X10^3/uL (2.0-7.7); Basophil# 0.07 X10^3/uL; Basophil% 1.4 % (0-1); Eosinophil# 0.17 X10^3/uL; Eosinophils% 3.3 % (0-5); Hematocrit 42.4 % (37-47); Lymphocyte # 1.45 X10^3/ul (0.83-4.51); Mean Corpuscular Hgb 30.4 pg (27.0-32.0); Mean Corpuscular Volume 92.2 fL (81-99); Monocyte# 0.53 X10^3/uL; Monocyte% 10.2 % (0-10); NRBC Flagged by Analyzer 0 % (0-5); Neutrophil # 2.94 X10^3/uL (2.7-7.7); Neutrophil % 56.7 % (47-70); Platelet Count 259 K/mm3 (150-450); RBC Distribution Width CV 12.4 % (11.6-14.6); White Blood Count 5.2 K/mm3 (4.4-11.0)
[2021-10-05 11:22] LABS: Partial Thromboplast Time 24.9 Seconds (24.1-36.2); Prothrombin Time (Protime)PT. 12.3 SECONDS (11.7-14.9)
[2021-10-05 11:38] LABS: Magnesium 2.2 mg/dL (1.6-2.6)
[2021-10-05 11:41] LABS: Anion Gap 5 (5-15); BUN 11 mg/dL (7-18); BUN/Creat Ratio 14.1 RATIO (10-20); Calcium,Total 9.9 mg/dL (8.5-10.1); Chloride 105 mmol/L (98-107); Creatinine, Serum 0.78 mg/dL (0.55-1.02); EST Glomerular Filtration Rate 80 mL/min (>60); Est Glom Filt Rate - Afr Amer 97 mL/min (>60); Glucose 94 mg/dL (74-106); Potassium 3.7 mmol/L (3.5-5.1); Sodium Level 138 mmol/L (136-145)
[2021-10-06 10:45] LABS: Fructosamine 230 umol/L (0-285)
[2021-10-17] VITALS (13 sets, daily range): BP systolic 111–146; BP diastolic 59–79; PULSE 65–95; RESP 12–18; TEMP 36.3–37.2; O2SAT 91–100; BMI 36.4
[2021-10-17] MEDS: Lactated Ringers 1,000 ML 15 ML IV (07:05)
--- NOTE | 2021-10-17 07:16 | PCM.HP.BLA ---
History and Physical Date of Admission: 10/17/21 Date of Service: 10/06/21 MR#:[id number]:[id number]: JD ESCAMILLA #:[id number]:[id number] Provider:Dr. Jeison Finley DOAge/Sex: 60/F [facility]:Signed Intake Intake Visit Reasons: right knee Chief Complaint: IOVERA treatment Allergies Sulfa (Sulfonamide Antibiotics) Allergy (Mild, Verified 10/06/21 10:34) rash Medications atorvastatin [Lipitor] 20 mg PO QHS 06/04/18 [History Confirmed 10/06/21] losartan 100 mg PO DAILY 06/04/18 [History Confirmed 10/06/21] amlodipine 5 mg tablet 5 mg PO DAILY 09/25/21 [History Confirmed 10/06/21] bupropion HCl 150 mg 24 hr tablet, extended release 150 mg PO DAILY 09/25/21 [History Confirmed 10/06/21] meloxicam 15 mg tablet 15 mg PO DAILY 09/25/21 [History Confirmed 10/06/21] oxygen-air delivery systems #1 10/06/21 [History Confirmed 10/06/21] [facility] Medical History (Updated 10/06/21 @ 11:[address] Jeison Finley DO) Alcohol use Anxiety Arthritis Back pain Bladder disease COVID-19 CPAP (continuous positive airway pressure) dependence Depression High cholesterol History of edema History of pain when walking Hypertension No pertinent past medical history Non-smoker Shortness of breath on exertion Wears glasses Surgical History (Updated 06/09/18 @ 08:[address] Tha Felipe MD) History of surgical removal of skin lesion S/P colonoscopy S/P hysterectomy Family History (Updated 09/24/17 @ 09:21 by Aracelis De La Cruz) Daughter Breast cancer Father Diabetes Mother Diabetes Heart disease Social History (Updated 09/24/17 @ 10:[address] Dilcia Roger MD) Smoking Status: Former smoker how long ago did patient quit smokin+ years alcohol intake: current HPI right knee Details: Parts of this documentation were recorded by a scribe, this documentation accurately reflects the service provided and the decisions made by ri, Dr. Jeison Finley DO 10/06/21 0812. JD ESCAMILLA is a 60 year old F here today for Iovera treatment of right knee. No new complaints or concerns Ortho Exam Right Knee Skin/Wound: No erythema, No ecchymosis and No swelling Knee ROM: No ROM-Passive Extension -10 to 0 and No ROM-Passive Flexion 0-140 Examination: Yes Med jt line tenderness, No Lat jt line tenderness, Yes Crepitus, Yes Pain with flexion and Yes Pain with extention Stability: NML: Anterior Drawer, NML: Cecily, NML: Varus 0 and NML: Varus 30 and 1+: Valgus 0 and 1+: Valgus 30 Patellar Tilt Normal: No Patella Grind: Yes KNEE: OTC knee hinged brace which helps with stability. c/o numbness about the anterior knee. lacking 25 degrees extension no joint effusion ,sensitive to light touch 85 degrees flexion medial joint line tenderness tender over pes 3 mm of gapping medially w/ valgus stress do to joint space narrowing. no varus instability Supplemental Info 09/25/2021 x-ray right knee [id number] medial compartment arthrosis moderate patellofemoral, there is spurring noted to the lateral compartment Coding Level of Care Code Attention Genet Diagnoses Right knee pain M25.561; G89.29 Chronicity: chronic Assessment and Plan Assessment and Plan (1) Right knee pain: Status: Acute Qualifiers: Chronicity: chronic Qualified Code(s): M25.561 - Pain in right knee; G89.29 - Other chronic pain Plan - Dr. Jeison Finley, DO: Patient will underwent IOvera procedure today without complication tolerated well. She was given preoperative soaps and drinks once again all questions were answered patient is planning to be observed overnight in the hospital. As she was declined for inpatient stay she has made arrangements for discharge home on postop day #1 Plan Details Other Orders: Orders: Iovera Today M25.569 10/06/21 1127<Electronically signed by Jeison Finley DO>Date Jeison Finley DO Cosigner Signature:Date I have re-examined the patient. There are no clinical changes since date of exam
[2021-10-17] MEDS: Acetaminophen 500 MG Tablet 1000 MG PO ×3 (07:25→22:43)
[2021-10-17] MEDS: Scopolamine 1mg/72hr Patch 1 PATCH TD (07:26)
[2021-10-17] MEDS: Gabapentin 600 MG Tablet PO (07:26)
--- NOTE | 2021-10-17 07:48 | SUR.PREOP ---
PER DR. CARPENTER VERBAL ORDER PT TO ONLY RECEIVE 35ML OF THE MAG THAT WAS HANGING. PT RECEIVED 35ML AND THE MAG WAS THEN DISCONTINUED PER DR. CARPENTER.
[2021-10-17] MEDS: Cefazolin 2 GM in 0.9% Normal Saline 100 ML IV (08:14)
--- NOTE | 2021-10-17 08:15 | KNEE_PTH ---
PATIENT: JD ESCAMILLA LOC: [facility] U#:[id number] AGE/SX: 60/F ROOM: MN315 RE10/17/[address]: Dr. Jeison Finley DO : 1960 BED: 1 DIS: 10/18/2021 SPEC #: [id number] RECD: 10/17/21 13:01 STATUS: MIREYA IRBAHIMTamir #: [id number] MAHOGANY: 10/17/21 08:[address]: Jeison Finley DEPT: SURGICAL PATHOLOGY RECD BY: Joyce Bowles ENTERED: 10/17/21 13:17 SP TYPE: TOTAL KNEE OTHR DR: Dr. Amadou Verduzco MD Tissues: Knee, NOS Procedures: Decalcification bone/plaque Surgery Specimen Level IV HEADER OPERATION: ERAS, total knee replacement robotic arm assist PRE-OP DIAGNOSIS: Pain in right knee TISSUE SUBMITTED: Bone and soft tissue right knee MICROSCOPIC DIAGNOSIS Bone and soft tissue of right knee, total knee resection: Severe degenerative joint disease. AM:renetta 10/20/2021 MICROSCOPIC DESCRIPTION Slides are reviewed. GROSS DESCRIPTION Received is one container designated bone and soft tissue right knee. The specimen consists of multiple fragments of dahl-yellow bone measuring in aggregate 12 x 10 x 3.5 cm. A number of bony fragments contain articular surfaces consistent with tibial plateau and femoral condyle and displaying prominent osteophyte formation and bone erosion. No soft tissue is identified. Patrol Inspector sections are submitted in two cassettes after decalcification. / JIN:renetta 10/17/2021 TC:5 CPT: 32832, 19906
[2021-10-17] MEDS: TXA 1000mg in NS100 100ml (IVPB at Incision) 660 MG IV (08:30)
[2021-10-17] MEDS: TXA 1000mg in NS100 100ml (IVPB at Closure) 660 MG IV (08:49)
[2021-10-17 09:05] LABS: Bedside Glucose 111 mg/dL (74-106)
[2021-10-17] MEDS: Epinephrine (1 mg/ml) 1 MG/ML VIAL (09:59)
[2021-10-17] MEDS: Bupivacaine Mpf 0.5% 30 ML VIAL (10:00)
[2021-10-17] MEDS: Betamethasone/Betamethasone 30 MG/5 ML Vial (10:00)
[2021-10-17] MEDS: 0.9% Normal Saline (Pres. free 10 ML Vial (10:01)
--- NOTE | 2021-10-17 10:34 | OP.PCM_ITS ---
Report of Operation Date of Procedure: 10/17/21 Description of Surgical Findings:: Preoperative diagnosis: Right knee DJD Postoperative diagnosis: Same Procedure: Right total knee arthroplasty CT guided Robotic Assisted Implant: Liberty triathlon press fit, femoral component size 4, tibial baseplate size 5, asymmetric patella size 32, polyethylene X3 size 9 CS Anesthesia: Spinal with adductor canal block Tourniquet time: 15 minutes at 300 mmHg Complications: None Condition: Stable to PACU Estimated blood loss: 175 cc Indication for procedure: This is a 60-year-old female with long standing degenerative joint disease of the knee who has failed conservative treatment and wished to proceed with elective total knee arthroplasty. Risk benefits and alternatives were reviewed including; risk of bleeding, infection, nerve artery and tissue damage, continued pain, postoperative stiffness, venous thro mboembolism, need for postoperative rehabilitation, mechanical feel to the knee, and expected postoperative course. The pre- operative CT and templating was performed with component sizing. Procedure: The patient was met in the preoperative holding area. The operative extremity was identified by both patient and physician and was marked. Patient was met by anesthesia. An adductor canal block was placed by anesthesia postoperatively the patient was brought back to the operating room on a wheeled cart and transferred to the operating table in the supine position. Anesthesia was started. A well-padded tourniquet was placed on the operative extremity. The patient was prepped and draped in the usual sterile fashion. A timeout was called to ensure the proper patient procedure and extremity were being contemplated. An esmarch was used to exsanguinate the extremity. The tourniquet was inflated. A 10 blade scalpel was used to make a midline incision down through the skin and subcutaneous tissue. Skin retractors placed. Bovie and Aquamantis were used to perform meticulous hemostasis. full-thickness flaps were elevated medial and lateral along the joint capsule. A deep blade scalpel was used to perform a medial parapatellar arthrotomy. The knee was brought to full extension. A bovie was used to release the soft tissues off the most proximal aspect of the medial tibial plateau, a three-quarter inch curved osteotome was also used in this process. The infrapatellar fat pad was excised. The suprapatellar fat pad was excised partially anteriorolateraly and portion the anterioromedial pad was elevated from the femur. At this point our intra- articular femoral array was placed at a 45 degree angle proximal and posterior to the medial epicondyle. femoral checkpoint was placed at this time. Our tibial array was placed greater than 1 hands breath below the incision at a 20 degree angle stab incisions were made with a 15 blade scalpel and pins were placed and attached to the tibial array , tibial checkpoint was placed in the proximal tibial metaphysis. Tourniquet was let down. At this point registration muse were taken throughout the knee . Once the knee was registered we then tensioned the medial and lateral ligaments in extension and 90 degrees of flexion. We then used these numbers to adjust our components within parameters to balance the knee in both flexion and extension once this was done on our monitor we then proceeded with using the robotic arm to make our tibial plateau cut, anterior and posterior chamfer and distal femur cuts. we removed the cut fragments with the use of a bovie and Radha, we did use a lamina command center officer to insure we visualized and removed all posterior osteophytes and at this time also used the Aquamantis on the posterior joint capsule. we then trialed and achieved the desired plan with a well-balanced knee. we used the green probe to willie the corresponding tibial rotation based on our CT template. Lug holes were drilled in the femur the tibia preparation was completed with the appropriate sized base plate pinned based on previous rotation willie. An appropriate sized fin punch was used on the tibia and 4 c orner drill was used for the press fit component and the patella was prepared by first using a caliper to ensure sufficient bone stock and a patellar reamer to remove the desired amount of bone. lug holes drilled for an asymmetric poly. We then brought the knee through range of motion with excellent patellar tracking. We thoroughly irrigated the knee. Trial components were removed a posterior c apsular injection was preformed with our standard cocktail. In addition the aqua Mantis was also used to aid in hemostasis. Betadine rinse was allowed to sit and washed out completely. Components were press-fit into place. Aricept rinse was then used followed by several more liters of irrigation after it was allowed to sit. The joint capsule was closed with #1 Ethibond [id number] followed by Vicryl in the subcutaneous tissues with ariana in the skin. Arrays and checkpoints were removed prior to closure all counts were correct stab incisions were closed with a staple standard dressing in the form of Mepilex AG for the main incision and a small Mepilex over the pin holes. Thigh-high RODERICK hose applied over top of dressing. Patient tolerated the procedure well and was directed to PACU in stable condition . There were no intraoperative complications.
--- NOTE | 2021-10-17 10:45 | RAD_ITS ---
STUDY: X-RAY - RIGHT KNEE REASON FOR EXAM: Female, 60 years old. Postoperative evaluation after total knee arthroplasty. TECHNIQUE: 2 view(s) of the knee. COMPARISON: 09/25/2021. FINDINGS: There is a 3 component total knee arthroplasty in anatomic position. There are expected post-operative findings. There are no complications. No other significant abnormality is identified. RAD/Knee 1 or 2 Views IMPRESSION: Total knee arthroplasty in anatomic alignment without complications. Electronically Signed: David Izquierdo MD at 11:10 EDT ,
[2021-10-17] MEDS: Lactated Ringers 1,000 ML 125 ML IV ×3 (11:00→22:01)
[2021-10-17] MEDS: Cefazolin 1 GM/50 ML BAG IV ×2 (13:15→22:00)
[2021-10-17] MEDS: oxyCODONE 5 MG Tablet PO (19:05)
[2021-10-17] MEDS: Atorvastatin Calcium 20 MG Tablet PO (22:02)
[2021-10-17] MEDS: Senna/Docusate Sodium 1 Tablet 2 TABLET PO (22:03)
[2021-10-18] MEDS: oxyCODONE 5 MG Tablet PO ×3 (00:53→11:55)
[2021-10-18] MEDS: Ketorolac 15 MG/ML Vial IV ×2 (00:55→14:21)
[2021-10-18 01:12] VITALS: BP 152/75; PULSE 95; RESP 18; TEMP 37.2; O2SAT 98
[2021-10-18] MEDS: Cefazolin 1 GM/50 ML BAG IV (05:57)
[2021-10-18 06:04] VITALS: BP 122/75; PULSE 84; RESP 18; TEMP 37.2; O2SAT 95
[2021-10-18] MEDS: Rivaroxaban 10 MG Tablet PO (06:13)
[2021-10-18] MEDS: Acetaminophen 500 MG Tablet 1000 MG PO ×2 (06:15→15:35)
[2021-10-18 06:30] LABS: Hematocrit 35.6 % (37-47); Hemoglobin 11.7 g/dL (12.0-15.0); Mean Corp Hgb Conc 32.9 g/dL (32-36); Mean Corpuscular Hgb 30.5 pg (27.0-32.0); Mean Corpuscular Volume 92.7 fL (81-99); Mean Platelet Vol. 10.9 fl (6.2-12.0); Platelet Count 239 K/mm3 (150-450); RBC Distribution Width CV 12.8 % (11.6-14.6); RBC Distribution Width SD 43.2 fl (35.1-43.9); Red Blood Count 3.84 M/mm3 (4.2-5.4); White Blood Count 12.9 K/mm3 (4.4-11.0)
[2021-10-18 06:55] LABS: Anion Gap 6 (5-15); BUN 10 mg/dL (7-18); BUN/Creat Ratio 11.9 RATIO (10-20); Calcium,Total 9.2 mg/dL (8.5-10.1); Chloride 107 mmol/L (98-107); Creatinine, Serum 0.84 mg/dL (0.55-1.02); EST Glomerular Filtration Rate 73 mL/min (>60); Est Glom Filt Rate - Afr Amer 88 mL/min (>60); Estimated Creatinine Clearance 74.43 ml/min; Glucose 126 mg/dL (74-106); Potassium 4.4 mmol/L (3.5-5.1); Sodium Level 137 mmol/L (136-145)
--- NOTE | 2021-10-18 07:14 | PCM.PN.ORT ---
Subjective Subjective Seen and examined doing well pain controlled denies nausea vomiting shortness of breath chest pain Objective Data Objective Data Vital Signs: Vital Signs Temp Pulse Resp BP Pulse Ox 99.0 F 84 18 122/75 H 95 10/18/21 06:04 10/18/21 06:04 10/18/21 06:04 10/18/21 06:04 10/18/21 06:04 Oxygen Flow Rate (L/min) 4 Oxygen Delivery Method Room Air Weight: 246 lb 11.156 oz Body Mass Index (BMI) 36.4 Intake & Output: Intake and Output for Last 24 Hours 10/16/21 10/17/21 10/18/21 23:59 23:59 23:59 Intake Total 3465 / 3465 800 / 800 Balance 3465 / 3465 800 / 800 Lab / Micro Data Result Diagrams: 10/18/21 06:24 10/18/21 06:24 Labs: Laboratory Results - last 24 hr 10/17/21 07:15: POC Glucose 111 H 10/18/21 06:24: WBC 12.9 H, RBC 3.84 L, Hgb 11.7 L, Hct 35.6 L, MCV 92.7, MCH 30.5, MCHC 32.9, RDW Std Deviation 43.2, RDW Coeff of Crystal 12.8, Plt Count 239, MPV 10.9 10/18/21 06:24: Sodium 137, Potassium 4.4, Chloride 107, Carbon Dioxide 24.0, Anion Gap 6, BUN 10, Creatinine 0.84, Estim Creat Clear Calc 74.43, Est GFR (MDRD) Af Amer 88, Est GFR (MDRD) Non-Af 73, BUN/Creatinine Ratio 11.9, Glucose 126 H, Calcium 9.2 Micro: Microbiology 10/05/21 10:04 Swab (Method) Nasal Screen MRSA/MSSA - Final Radiography Diagnostic Testing: Radiology Impression Knee X-Ray 10/17/21 10:45 IMPRESSION: Total knee arthroplasty in anatomic alignment without complications. Electronically Signed: David Izquierdo MD at 11:10 EDT , Physical Exam Const alert and oriented x3 General Appearance: cooperative Extremity Extremity Narrative: Compartments soft neurovascular intact dressings clean dry and intact Assessment & Plan Assessment/Plan (1) Right knee pain: QUALIFIERS: Chronicity: chronic Qualified Code(s): M25.561 - Pain in right knee; G89.29 - Other chronic pain PLAN: Postop day #1 right total knee arthroplasty. Patient is doing well. She will be discharged home and start outpatient physical therapy this week. She will begin Xarelto 10 mg daily for 2 weeks beginning today. She will follow-up in the office in 2 weeks. Discharge instructions provided.
--- NOTE | 2021-10-18 07:15 | EX.PCM.DISCH ---
Discharge Instructions Diet Discharge Diet: No restrictions Activity Keep extremity elevated above heart level: Operative Extremity Dressing / Incision Call your doctor if you observe: Fever of 101 or Higher, Shortness of breath and Chest pain Additional Dressing/Incision Instructions:: Ice and elevate one week while not ambulating. Ambulation is encouraged. Weightbearing as tolerated. Use assistive devise for stability. Encourage FULL knee extension and flexion 1 time EVERY time you get up and down and MULTIPLE times per day. No showering 72 hours after surgery. Begin showering postop day #3. Remove the dressing prior to shower and gently wash with warm water and antibacterial soap then pat dry and place abdominal pad (or plain gauze) and RODERICK hose over top. This is to be done daily. Do not submerge for 3 weeks. If not showering daily after the initial 72 hours then you must clean incision and change dressing daily. Do not allow animals near the incision area. Keep clean. Follow anticoagulation recommendations as prescribed. Do not take any NSAIDs while on blood thinner. Do not take any additional narcotic pain medication other than what was prescribed on your surgery day without discussing with physician. Narcotic medication can be addictive. Do not drink alcohol while taking narcotics. Start physical therapy. If you are not currently scheduled for physical therapy or you are unsure of appointment time please call office [facility] to arrange. Call Dr. Finley with any concerns. Follow Up Care Please Follow Up With: Jeison Finley DO When: 2 weeks Test Results: Test results from this visit will be discussed in further detail at your follow-up appointment, if applicable. Discharge Plan Admission Admit Date/Time: 10/17/21 12:07 Primary Reason for Your Visit: Right total knee arthroplasty Attending Provider: Jeison Finley Primary Care Provider: Bruce Verduzco Discharge Orders/Prescriptions Prescriptions: New oxycodone 5 mg Tablet 5 - 10 mg PO Q4H PRN PRN (Reason: Pain Score 4-10) 7 Days Qty: 60 RF: 0 Xarelto 10 mg Tablet 10 mg PO DAILY Qty: 14 RF: 0 acetaminophen 500 mg Tablet 1,000 mg PO Q6H Qty: 90 RF: 2 Continued amlodipine 5 mg tablet 5 mg PO DAILY RF: 0 bupropion HCl 150 mg tablet extended release 24 hr 150 mg PO DAILY RF: 0 (DME) oxygen-air delivery systems Device See Rx Instructions .ROUTE .M[employer] SolutionsPPLY Qty: 1 RF: 0 losartan 50 MG tablet 100 mg PO DAILY RF: 0 atorvastatin [Lipitor] 20 MG tablet 20 mg PO QHS RF: 0 Held meloxicam 15 mg tablet 15 mg PO DAILY RF: 0 Hold Instructions: Resume on 10/25/21. Referrals / Follow Up: Bruce Verduzco MD [Primary Care Provider] -
[2021-10-18] MEDS: 0.9% Saline Lock 10 ML Syringe IV ×2 (07:20→14:21)
[2021-10-18 07:52] VITALS: BP 130/66; PULSE 82; RESP 20; TEMP 36.9
[2021-10-18] MEDS: Senna/Docusate Sodium 1 Tablet 2 TABLET PO (08:45)
--- NOTE | 2021-10-18 11:17 | CASEMGMT ---
CHINA VERMA Assessment: Face to Face with pt for initial transition planning/care coordination assessment. RN BAYRON introduced self and role at [facility], pt voices understanding and consents to assessment. Pt is A/O x4 and answers all questions appropriately at this time. Care providers, pharmacy, and demographics verified/updated. Admitting Dx: R Total Knee with DILEEP PCP:Dax Specialists:Malia, ortho; iqra Mcdaniels Preferred Pharmacy: [facility] Retail and [facility] [place] Insurance: [employer] Prescription Benefit: yes LW/HPOA: Pt denies having a LW/DPOA and denies need for info regarding AD. LNOK: John Cerna, ; Niki Blair, dtr Living Arrangements: Pt lives with in a mobile home with 4 steps to enter with a rail. Pt reports she was I in ADL's prior to OR and denies concerns at home. Transportation: Pt drives self and denies concerns with transportation. Pt dtr will take pt to outpt therapy for initial eval and then pt plans on using hospital van for further appts. She denies need for information on this. DME/HHC/SNF: Pt has a CPAP at home. She is renting a FWW, 3 in 1 and extended tub bench. Pt denies hx of HHC or SNF stays. Pt states no concerns with going home at time of dc. She has outpt therapy set up on Saturday at [facility]. Pt states no further concerns/needs. CM to follow. Advised pt to ask CM if any further question/concerns/needs arise, voices understanding. Pt Goal: Home with outpt therapy set up. Plan: Home with outpt therapy set up.
--- NOTE | 2021-10-18 12:04 | CASEMGMT ---
Addendum entered by Funmilayo Hernandez 10/18/21 12:35: TC to [facility], cost for xarelto is $68.82. Pt notified. Original Note: TC to [facility] to check cost of xarelto, spoke with Ene, she states med was $68 and it was asked to be trf'd to [facility] in [place]. TC to [facility] in [place], they state they have not received the rx. TC back to Ene, she states the med was trf at 0920. She will call [facility] again to make sure received. RN CM to check cost once received.
--- NOTE | 2021-10-18 12:35 | CHAPLAIN ---
Type of Pastoral Visit _x__ Initial Visit ___ Follow-up Visit ___ On-call Visit ___ General Patient Visit ___ Spiritual Assessment ___ Family Conference ___ Bereavement ___ Rapid Response ___ Code Blue ___ Other (describe below) Pastoral Care Referral From _x__ Patient ___ Family ___ Nurse ___ Physician ___ Burlap Man ___ Bit Setter ___ Other (describe below) Sacrament/Intervention _x__ Active listening ___ Anointing ___ Jainism ___ Bereavement ___ Communion ___ Tamiko exploration ___ _x__ Life review ___ Prayer ___ Reconciliation ___ Sacrament of Sick ___ Supportive presence ___ Wedding ___ Other (describe below) Pastoral Comments patient and spouse are in the room; pt gives brief summary of how she feels and what her expectations are for recovery; pt has some life review but otherwise expresses no further concerns or questions
[2021-10-18 14:39] VITALS: BP 142/60; PULSE 88; RESP 22; TEMP 38
[2021-10-18] MEDS: oxyCODONE 5 MG Tablet 15 MG PO (16:06)
--- NOTE | 2021-10-18 16:23 | CASEMGMT ---
Pt nurse asked this RN BAYRON to speak with pt as she may be staying an extra night in the hospital. CHINA VERMA in to pt room, at bedside. Made pt aware that this hospital stay will be billed as an outpt service. She states she knows that her insurance denied her stay to be inpt. She also states that her insurance is covered at 80%. Pt asked her what they should do. Denies further questions at this time.
[2021-10-18 17:45] VITALS: BP 161/74; PULSE 92; RESP 18; TEMP 37.6; O2SAT 97
== END 2021-10-18 18:01 | disposition home or self-care (01) ==
LOC: SDC 10-18 08:50 → MS3 10-18 08:50
PROVIDERS: Anesthesiology; Admitting Provider Orthopaedic Surgery; PCP Family Medicine; Referring Provider Orthopaedic Surgery; Visit Provider Orthopaedic Surgery
PROC: 0SRC0JZ Replacement of Right Knee Joint with Synthetic Substitute, Open Approach (ICD-10-PCS; CPT 27447; principal; 2021-10-17 07:45)
DX: M17.11 Unilateral primary osteoarthritis, right knee (principal); I10 Essential (primary) hypertension; E78.00 Pure hypercholesterolemia, unspecified; Z87.891 Personal history of nicotine dependence; Z79.899 Other long term (current) drug therapy; F41.9 Anxiety disorder, unspecified; F32.A Depression, unspecified; Z86.16 Personal history of COVID-19; G89.29 Other chronic pain; R94.31 Abnormal electrocardiogram [ECG] [EKG]; R06.02 Shortness of breath
CPT/HCPCS: 27447; S2900; 64447; 01402; 36415; 73560; 80048; 82962; 82985; 83735; 85025; 85027; 85610; 85730; 86850; 86900; 86901; 87077; 87081; 88305; 88311; 93005; 94762; 96365; 96366; 96375; 96376; 97110; 97116; 97162; 97166; 97530; 97535; 99218; 99251; C1776; J7120; A4216; G0378; G0463; J0702; J2405; J3490

== ENCOUNTER 2021-12-28 10:30 | Outpatient (RCR) | payer OTHER, SELFPAY ==
--- NOTE | 2021-10-23 09:31 | HP.PTEVAL ---
Patient's Visit Information JD ESCAMILLA is a 60 year old F referred to Physical Therapy by Dr. Jeison Finley DO with a diagnosis of R TKA. DOS 10/17/21.. Date of Evaluation: 10/23/21 Physical Therapist: Hector Leo DPT - Visit Plan Frequency: 2-3x /Week Duration: 4-6 Weeks Plan: Start with ROM progression, edema control. Progress to functional strengthening, gait progression as tolerated. - Subjective Pt. is here today for her initial evaluation with diagnosis of R TKA. DOS 10/17/21. Pt. arrives with walker with reports of high pain. She reports taking her pain medication as prescribed. She arrives with daughter. Pt. has been doing her exercises at home as well. She denies N/T, no fever, no calf pain, no shortness of breath. Pt. reports having difficulty with straightening her knee and bending it. She is trying to get up every hour or so to walk around. She is sleeping in bed. She has not done too many stairs at home. She is walking up in the night due to pain. Pt. Her biggest complaint is her stiffness. She is hopeful to reduce symptoms in order to get back to all work and recreational activities without limitations. - Pain R knee Pain Intensity (Out of 10): 7 Pain Intensity Range: 4, 10 - Objective POSTURE: pt. heavily uses AD in stance. She is able to stand without, but off loads RLE with AD. PALPATION: Pt. has bandage in place, to take off tomorrow. She has edema +4.cm at mid patella on R side. None pitting edema noted. Pt. has bruising, but overall minimal. NEURO: Pt. has normal sensation and normal Achilles DTR of BLEs. Pt. is able to rise on heels and toe without issues uses balance aide. ROM: R knee 0-5-87deg. Pt. reports increased pain at end of ranges of motion. Tightness noted in BHS as well. MMT: R LE: ankle- 5/5 throughout; knee: ext 0#, flexion 4#. hip: flexion 0#, abd 0#, ext 5#. LLE: ankle 5/5 throughout; knee ext: 38#, flexion 32#; hip: flexion 26#, abd 18#, ext 21#. GAIT: Pt. ambulates with FWW with heavy uses. She has decent knee extension (Lacking ~5deg), but minimal knee flexion during swing phase. Increased use of AD to off load. STAIRS: Step to pattern loading on LLE with use of BHR. - Balance/Special Test Scores Lower Extremity Functional Score: 0 TUG Test Time Seconds: 67 WOMAC Total Score: 85 WOMAC Percentatge: 11.4600 - Goals Goal 1:: LTG: Pt. to be I with HEP. Goal 2:: LTG: Pt. to be able to ambulate without AD with normal gait pattern for at least 800+ feet without increase in symptoms. Goal 3:: LTG: Pt. to have increased ROM of R knee to 0-0-120deg AROM allowing to good tolerance to all functional mobility. Goal Time Frame: 2-4 Weeks Goal 4:: STG: Pt. to be able to sleep throughout the night without increase in symptoms. Goal Time Frame: 2-4 Weeks Goal 5:: STG: Pt. to have decreased of RLE, symmetrical to L knee. Goal Time Frame: 2 Weeks Goal 6:: LTG: Pt. to complete TUG without AD in less than 8 seconds indicating increased functional mobility. Goal Time Frame: 4-6 Weeks - Rehabilitation Potential Physical Therapy Diagnosis: Pt. has signs and symptoms consistent with R TKA. DOS 10/17/21. Pt. presents with marked hypomobility, weakness, difficulty with gait. Pt. would benefit from PT to address the above limitations progressing back to all recreational and work activities without limitations. Rehabilitation Potential: Excellent - Anticipated Interventions Patient/Client Instruction: Educate patient on: Condition, Plan of Care, Risk Factors, Benefits of Fitness Program For the Purpose of:: To facilitate caregiver knowledge, To improve self management, To prevent re-injury, To improve ability to perform tasks related to life management, To improve tolerance to ADL's Therapeutic Exercise to Include: Strength training, Power training, Endurance training, Balance training, Agility training, Body mechanics, Postural training, Flexibilty training, Gait and locomotor training, Passive ROM, Active ROM For the Purpose of:: To decrease pain, To decrease swelling/inflammation, To increase ROM, To improve nutrient delivery to tissue, To improve ability of physical actions for home/community/work/leisure, To improve gait and locomotor functions, To improve health of tissue, To decrease soft tissue restriction, To increase flexibility/ROM, To improve endurance, To improve balance Manual Therapy Techniques to Include: Mobilization, Passive ROM, Soft tissue mobilization For the Purpose of:: To decrease pain, To decrease swelling/inflammation, To increase ROM, To improve nutrient delivery to tissue Cryotherapy (ice pack, ice massage): Yes Vasopneumatic device: Yes For the Purpose of:: To decrease pain, To decrease swelling/inflammation, To increase ROM Thank you for the opportunity to evaluate your patient. For Medicare and Medicare HMO plans, please review the plan of care and approve it. It will need to be FAXED BACK to us at [phone] for Medicare purposes. For Medicare only, by signing this I certify the plan of care. Please let me know if there are questions or concerns regarding this plan of care. Physician Signature: Date:
--- NOTE | 2021-11-27 17:26 | HP.PTREVAL ---
Dr. Jeison Finley, DO, It has been my pleasure to treat JD ESCAMILLA over the last 14 visits for R TKA. DOS 10/17/21.. Please see the progress note below for an update on the physical therapy plan of care! Subjective: Pt. reports being 50% better overall. She is still having some pain and has some trouble getting up and down off lower surface. Objective/Function: TU.89sec no AD. MMT: strength is pretty good in bilateral LEs. R knee: ext 24.2#, flexion 18.3#; L knee: extension 42#, flexion 17.1#. ROM: R knee 0-5-116deg. Pt. did have better ROM last week. Pain limiting further ROM today. No hard block noted. GAIT: pt. ambulates without AD, but does avoid TKE during stance phase on her RLE, she has decent flexion during swing phase. Pt/ reports mild increase in symptoms with WBing this date. STAIRS: Pt. able to negotiate with reciprocal pattern with 1 HR, no major antalgic patterns but has slight weakness with ascending during R stance phase. Overall she is doing well. I would like her to have better tolerance to full extension allowing for improved gait pattern. She has been focusing on flexion heavily, but I would like her to continue to slowly stretch into extension improving tolerance. Pt. consents. She was more sore this date than she has been, but did a lot last visit in therapy and at home. I would like her to ease into activities rather than focus on increasing tolerance. Plan Plan: Cont. to progress end range of motions, long duration low load stretching. Progress gait mechanics and tolerance to functional mobility. Balance/Gait/Functional tests - Balance/Special Test Scores Lower Extremity Functional Score: 0 TUG Test Time Seconds: 67 Tug Test: >30sec.=impaired mobility WOMAC Total Score: 85 WOMAC Percentage: 11.4600 Goals Goal 1:: LTG: Pt. to be I with HEP. Goal Progress: Progressing Goal 2:: LTG: Pt. to be able to ambulate without AD with normal gait pattern for at least 800+ feet without increase in symptoms. Goal Progress: Progressing Goal 3:: LTG: Pt. to have increased ROM of R knee to 0-0-120deg AROM allowing to good tolerance to all functional mobility. Goal Time Frame: 2-4 Weeks Goal Progress: Progressing Goal 4:: STG: Pt. to be able to sleep throughout the night without increase in symptoms. Goal Time Frame: 2-4 Weeks Goal Progress: Goal Met Goal 5:: STG: Pt. to have decreased of RLE, symmetrical to L knee. Goal Time Frame: 2 Weeks Goal Progress: Goal Met Goal 6:: LTG: Pt. to complete TUG without AD in less than 8 seconds indicating increased functional mobility. Goal Time Frame: 4-6 Weeks Goal Progress: Progressing Anticipated Interventions Patient/Client Instruction: Educate patient on: Condition, Plan of Care, Risk Factors, Benefits of Fitness Program For the Purpose of:: To facilitate caregiver knowledge, To improve self management, To prevent re-injury, To improve ability to perform tasks related to life management, To improve tolerance to ADL's Therapeutic Exercise to Include: Strength training, Power training, Endurance training, Balance training, Agility training, Body mechanics, Postural training, Flexibilty training, Gait and locomotor training, Passive ROM, Active ROM For the Purpose of:: To decrease pain, To decrease swelling/inflammation, To increase ROM, To improve nutrient delivery to tissue, To improve ability of physical actions for home/community/work/leisure, To improve gait and locomotor functions, To improve health of tissue, To decrease soft tissue restriction, To increase flexibility/ROM, To improve endurance, To improve balance Manual Therapy Techniques to Include: Mobilization, Passive ROM, Soft tissue mobilization For the Purpose of:: To decrease pain, To decrease swelling/inflammation, To increase ROM, To improve nutrient delivery to tissue Cryotherapy (ice pack, ice massage): Yes Vasopneumatic device: Yes For the Purpose of:: To decrease pain, To decrease swelling/inflammation, To increase ROM Please do not hesitate to contact me at [phone] by phone or if you have questions or concerns regarding this new plan of care! Sincerely, Hector Leo DPT
--- NOTE | 2021-12-28 10:50 | HP.PTDCSUM ---
It has been my pleasure to treat JD ESCAMILLA referred by Dr. Jeison Finley DO, with the diagnosis of R TKA. DOS 10/17/21. for a total of 22 visit(s). Discharge Date: 12/28/21 Please see the following information for a summary of their discharge status. Subjective: Pt. reports having 1/10 pre treatment today, its just a little stiff. Pt. has been able to walk without issues. No issues with sleeping. R knee Pain Intensity (Out of 10): 1 % Improvement: 95 Objective/Function: ROM: L knee 0-0-121deg. actively, passively 0-0-124deg Mild stiffness at end range extension. MMT: symmetrical strength noted. Dynamometer not functioning, unable to measure poundage, but her strength is symmetrical and 5/5. GAIT: Pt. is ambulating well without issues. She has normal gait pattern, but. STAIRS: Pt. is able to ascend and descend with reciprocal pattern with 1 HR without increase in symptoms. TU.1sec no AD. She did pull off a scab at her distal incision, leaving a small hole, dry underneath. Pt. to keep an eye on it. It did not appear to show any signs of infection. Overall doing. Goal 1:: LTG: Pt. to be I with HEP. Goal Progress: Goal Met Goal 2:: LTG: Pt. to be able to ambulate without AD with normal gait pattern for at least 800+ feet without increase in symptoms. Goal Progress: Goal Met Goal 3:: LTG: Pt. to have increased ROM of R knee to 0-0-120deg AROM allowing to good tolerance to all functional mobility. Goal Progress: Goal Met Goal 4:: STG: Pt. to be able to sleep throughout the night without increase in symptoms. Goal Progress: Goal Met Goal 5:: STG: Pt. to have decreased of RLE, symmetrical to L knee. Goal Progress: Goal Met Goal 6:: LTG: Pt. to complete TUG without AD in less than 8 seconds indicating increased functional mobility. Goal Progress: Goal Met Plan: Pt. to be DC to physician. She is doing well with all activities, ROM and strength. Discharge Comments: Pt. will be DC from PT at this point in time. She is doing really well with all of her ROM, strength and general mobility. She is walking well and reports minimal pain. Pt. to follow up with physician in a few days. If there are questions or concerns regarding this patient's physical therapy, please feel free to call me at [phone]. Thank you for the referral of this patient. Sincerely, Hector Leo, DPT Balance/Gait/Functional tests - Balance/Special Test Scores Lower Extremity Functional Score: 68 TUG Test Time Seconds: 67 Tug Test: >30sec.=impaired mobility WOMAC Total Score: 85 WOMAC Percentage: 11.4600
== END 2021-12-28 14:22 | disposition home or self-care (01) ==
LOC: PT 10:30
PROVIDERS: PCP Family Medicine; Referring Provider Orthopaedic Surgery; Visit Provider Orthopaedic Surgery
DX: Z47.1 Aftercare following joint replacement surgery (principal); Z96.651 Presence of right artificial knee joint
CPT/HCPCS: 97016; 97110; 97161; 97164

== ENCOUNTER → 2022-02-09 | Outpatient (CLI) | payer OTHER, SELFPAY | END | disposition home or self-care (01) | LOC: LABSPEC 16:39 | PROVIDERS: PCP Family Medicine; Visit Provider Family Medicine | DX: Z20.822 Contact with and (suspected) exposure to COVID-19 (principal) | CPT/HCPCS: 87635; U0003; U0005 ==

== ENCOUNTER → 2022-06-15 | Outpatient (CLI) | payer OTHER, SELFPAY ==
[2022-06-26 16:53] LABS: HPV APTIMA, High Risk Negative (Negative)
[2022-06-27 22:16] LABS: HPV Reflexed? YES, CHARGE PATIENT
== END | disposition home or self-care (01) ==
LOC: LABSPEC 15:44
PROVIDERS: PCP Family Medicine; Visit Provider Nurse Practitioner Family
DX: Z01.419 Encounter for gynecological examination (general) (routine) without abnormal findings (principal)
CPT/HCPCS: 87624; 88175; G0145

== ENCOUNTER → 2022-07-04 | Outpatient (CLI) | payer OTHER, SELFPAY ==
--- NOTE | 2022-07-04 10:43 | BI_ITS ---
MAMMOGRAPHY - BILATERAL SCREENING REASON FOR EXAM: Female, 61 years old. Routine annual screening examination. PERTINENT HISTORY: Daughter with breast cancer. TECHNIQUE: Digital bilateral breast [place] (3D mammographic acquisition) in the CC and MLO projections. 2-D mediolateral oblique (MLO) and craniocaudad (CC) views of both breasts were obtained. CAD: Full Field Digital Mammography with Computer Added Detection was performed. COMPARISON: Comparison is made with prior study dated 04/04/2021 and 01/01/2020. FINDINGS: Breast Composition: The breasts are heterogeneously dense, which may obscure small masses. There are no dominant masses or suspicious calcifications. Stable 7 mm x 7 mm well-defined nodule with a calcific rim in the medial inferior aspect of the left breast. This is suggestive of a calcified fibroadenoma. No other significant abnormalities are identified. There has been no significant change since the prior study. BI/SCRN MAMM (CAD)W/[place] BILAT IMPRESSION: Stable bilateral screening mammogram. Yearly follow-up mammogram recommended. (A) ASSESSMENT CATEGORY: BIRADS Category 2: Benign. A letter regarding these results will be sent to the patient by the facility within 30 days. Approximately 10% of breast cancers are not detected by mammography. A normal mammogram should not delay biopsy of a clinically suspicious abnormality. [id number] Electronically Signed: Hao Avendano MD at 12:28 EST ,
== END | disposition home or self-care (01) ==
LOC: OPBI 10:41
PROVIDERS: PCP Family Medicine; Visit Provider Nurse Practitioner Family
DX: Z12.31 Encounter for screening mammogram for malignant neoplasm of breast (principal); N63.24 Unspecified lump in the left breast, lower inner quadrant; Z80.3 Family history of malignant neoplasm of breast
CPT/HCPCS: 77063; 77067

== ENCOUNTER → 2022-08-27 | Outpatient (CLI) | payer OTHER, SELFPAY ==
[2022-08-27 10:32] LABS: Vitamin D,25 Hydroxy 16.8 ng/mL
[2022-08-27 10:40] LABS: ALB/GLOB Ratio 0.8 RATIO (0.9-2.4); AST(SGOT) 16 U/L (15-37); Alanine Aminotransfer ALT/SGPT 27 U/L (13-56); Albumin, Serum 3.4 g/dL (3.2-5.0); Alkaline Phosphatase 66 U/L (45-117); Anion Gap 8 (5-15); BUN 11 mg/dL (7-18); BUN/Creat Ratio 16.7 RATIO (10-20); Chloride 107 mmol/L (98-107); Cholesterol 218 mg/dL (200); Creatinine, Serum 0.66 mg/dL (0.55-1.02); EST Glomerular Filtration Rate 97 mL/min (>60); Est Glom Filt Rate - Afr Amer 118 mL/min (>60); Globulin 4.1 g/dL (2.2-4.2); Glucose 89 mg/dL (74-106); High Density Lipoprotein 71 mg/dL; Protein, Total 7.5 g/dL (6.4-8.2); Sodium Level 140 mmol/L (136-145); Thyroid Stim Hormone (TSH) 1.38 uIU/mL (0.358-3.74); Triglycerides 165 mg/dL; Very Low Density Lipoprotein 33 mg/dL (5-40)
== END | disposition home or self-care (01) ==
LOC: MFPLAB 08:42
PROVIDERS: PCP Family Medicine; Visit Provider Family Medicine
DX: I10 Essential (primary) hypertension (principal); F32.A Depression, unspecified
CPT/HCPCS: 36415; 80053; 80061; 82306; 84443

== ENCOUNTER → 2022-08-30 | Outpatient (CLI) | payer OTHER, SELFPAY | END | disposition home or self-care (01) | PROVIDERS: PCP Family Medicine; Referring Provider Family Medicine; Visit Provider Family Medicine | DX: R30.0 Dysuria (principal) | CPT/HCPCS: 87086; 87088 ==

== ENCOUNTER → 2022-12-05 | Outpatient (CLI) | payer OTHER, SELFPAY ==
[2022-12-05 09:22] LABS: Bacteria 0 SEEN /hpf (None Seen); Mucous, Urine 0 SEEN /hpf (<or=2+); White Blood Cells 0 SEEN /hpf (0-5)
[2022-12-05 10:08] LABS: Color, Urine Yellow (Yellow); Glucose, Dipstick Normal (Normal); Ketone-Dipstick Negative (Negative); Leukocyte Esterase-Dipstick Negative /ul (Negative); Nitrite-Dipstick Negative (Negative); Occult Blood-Urine 10 /ul (Negative); Protein-Dipstick Negative (Negative); Urine Bilirubin Dipstick Negative (Negative); Urine Clarity Sl. Cloudy (Clear); Urine Urobilinogen Normal (Normal)
[2022-12-05 10:17] LABS: Red Blood Cells-Urine 0-5 SEEN /hpf (0-5); Squamous Epithelial Cells - UA 0-5 SEEN /hpf (5-10)
== END | disposition home or self-care (01) ==
LOC: MFPLAB 09:16
PROVIDERS: PCP Family Medicine; Visit Provider Family Medicine
DX: R31.9 Hematuria, unspecified (principal)
CPT/HCPCS: 81001; 87086; 87088

== ENCOUNTER → 2023-01-08 | Outpatient (CLI) | payer OTHER, SELFPAY ==
[2023-01-08 12:47] LABS: Hematocrit 41.5 % (37-47); Hemoglobin 13.8 g/dL (12.0-15.0); Mean Corp Hgb Conc 33.3 g/dL (32-36); Mean Corpuscular Hgb 31.1 pg (27.0-32.0); Mean Corpuscular Volume 93.5 fL (81-99); Mean Platelet Vol. 10.9 fl (6.2-12.0); Platelet Count 237 K/mm3 (150-450); RBC Distribution Width CV 12.7 % (11.6-14.6); RBC Distribution Width SD 43.7 fl (35.1-43.9); Red Blood Count 4.44 M/mm3 (4.2-5.4); White Blood Count 5.1 K/mm3 (4.4-11.0)
[2023-01-08 13:12] LABS: Anion Gap 5 (5-15); BUN 10 mg/dL (7-18); BUN/Creat Ratio 15.1 RATIO (10-20); Calcium,Total 9.5 mg/dL (8.5-10.1); Chloride 107 mmol/L (98-107); Creatinine, Serum 0.66 mg/dL (0.55-1.02); EST Glomerular Filtration Rate 96 mL/min (>60); Est Glom Filt Rate - Afr Amer 116 mL/min (>60); Glucose 85 mg/dL (74-106); Sodium Level 136 mmol/L (136-145); Thyroid Stim Hormone (TSH) 1.69 uIU/mL (0.358-3.74); Troponin-I HS < 3 pg/mL (3.0-54.0)
== END | disposition home or self-care (01) ==
LOC: MFPLAB 11:19
PROVIDERS: PCP Family Medicine; Visit Provider Family Medicine
DX: R07.9 Chest pain, unspecified (principal)
CPT/HCPCS: 36415; 80048; 84443; 84484; 85027

== ENCOUNTER → 2023-01-25 | Outpatient (CLI) | payer OTHER, SELFPAY ==
--- NOTE | 2023-01-25 14:46 | STRESSREP ---
Stress Test Report Exercise myocardial perfusion stress test. 62-year-old lady with a history of chest pain Stress protocol: Resting EKG demonstrates normal sinus rhythm with a rate of 76 bpm resting blood pressure is 152/88 mmHg. The patient exercised according to the regular Liam protocol for a total duration of 4 minutes and 8 seconds attaining a maximum heart rate of 148 bpm which was 93% of maximum predicted heart rate; the maximum workload was 7 metabolic equivalents. At rest there were no ST or T wave changes noted to suggest ischemia and at peak exercise upsloping ST changes only were noted which did not meet the criteria for ischemia. No clinical angina was noted the test was terminated due to the target heart rate being achieved/fatigue. The peak blood pressure was 192/70 mmHg. Rate-pressure product was 20,700. Myocardial perfusion protocol. 14.9 mCi of technetium 99m sestamibi was injected at rest. The patient exercised according to regular Liam protocol for total duration of 4 minutes and 8 seconds and at peak exercise 44.7 mCi of technetium 99m sestamibi was injected stress images were obtained stress and rest images were reconstructed in comparing the short axis vertical long and horizontal long axis. Gated images were also obtained. Perfusion SPECT analysis: Review of the stress images demonstrate normal uptake of tracer noted in all areas of the myocardium. The resting images similarly demonstrate normal uptake of tracer noted in all areas of the myocardium. No areas of reversibility are noted to suggest ischemia no previous infarct was noted. Gated SPECT analysis: The gated ejection fraction is 77%. Conclusion: Normal exercise myocardial perfusion stress test at a moderate workload Preserved ejection fraction.
== END | disposition home or self-care (01) ==
PROVIDERS: PCP Family Medicine; Referring Provider Family Medicine; Visit Provider Family Medicine
DX: R07.9 Chest pain, unspecified (principal)
CPT/HCPCS: 78452; 93017; A9500; A4216

== ENCOUNTER → 2023-08-02 | Outpatient (CLI) | payer OTHER, SELFPAY ==
--- NOTE | 2023-08-02 11:41 | BI_ITS ---
MAMMOGRAPHY - BILATERAL SCREENING REASON FOR EXAM: Female, 62 years old. Routine annual screening examination. PERTINENT HISTORY: Daughter with breast cancer. Remote left breast biopsy. TECHNIQUE: Digital bilateral breast [place] (3D mammographic acquisition) in the CC and MLO projections. 2-D mediolateral oblique (MLO) and craniocaudad (CC) views of both breasts were obtained. CAD: Full Field Digital Mammography with Computer Added Detection was performed. COMPARISON: Comparison is made with prior study dated April 04, 2022 and April 04, 2021. FINDINGS: Breast Composition: The breasts are heterogeneously dense, which may obscure small masses. There are no dominant masses or suspicious calcifications. Stable 7 mm x 7 mm well-defined calcified nodule in the medial inferior aspect of the left breast No other significant abnormalities are identified. There has been no significant change since the prior study. BI/SCRN MAMM (CAD)W/[place] BILAT IMPRESSION: Stable bilateral screening mammogram. Yearly follow-up mammogram recommended. (A) ASSESSMENT CATEGORY: BIRADS Category 2: Benign. A letter regarding these results will be sent to the patient by the facility within 30 days. Approximately 10% of breast cancers are not detected by mammography. A normal mammogram should not delay biopsy of a clinically suspicious abnormality. [id number] Electronically Signed: Hao Avendano MD at 13:55 EST ,
== END | disposition home or self-care (01) ==
LOC: OPBI 11:40
PROVIDERS: PCP Family Medicine; Referring Provider Family Medicine; Visit Provider Family Medicine
DX: Z12.31 Encounter for screening mammogram for malignant neoplasm of breast (principal)
CPT/HCPCS: 77063; 77067

== ENCOUNTER 2023-11-28 08:46 | Emergency (ER) | payer OTHER, SELFPAY ==
[2023-11-28 08:47] VITALS: BP 157/81; PULSE 84; RESP 16; TEMP 36.1; O2SAT 94
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
--- NOTE | 2023-11-28 09:27 | EKG12_ITS ---
Test Reason : CP Blood Pressure : / mmHG Vent. Rate : 075 BPM Atrial Rate : 075 BPM P-R Int : 128 ms QRS Dur : 092 ms QT Int : 386 ms P-R-T Axes : 042 069 041 degrees QTc Int : 431 ms Normal sinus rhythm Nonspecific ST and T wave abnormality Abnormal ECG Confirmed by Samir Sullivan ([id number]), desk editor ROMI OCHOA ([id number]) on 12/02/2023 10:13:11 AM Referred By: Confirmed By:Samir Sullivan
[2023-11-28] MEDS: 0.9% Normal Saline (1000mL) 1,000 ML 150 ML IV (09:30)
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
[2023-11-28 09:46] VITALS: BP 146/75; PULSE 73; RESP 15; O2SAT 97
[2023-11-28 09:57] LABS: Absolute Lymphocyte Count 0.82 X10^3/uL (0.83-4.51); Absolute Neutrophil Count 3.4 X10^3/uL (2.0-7.7); Basophil# 0.05 X10^3/uL; Eosinophil# 0.19 X10^3/uL; Eosinophils% 3.8 % (0-5); Hematocrit 41.7 % (37-47); Hemoglobin 13.9 g/dL (12.0-15.0); Lymphocyte # 0.82 X10^3/ul (0.83-4.51); Lymphocyte % 16.2 % (19-41); Mean Corp Hgb Conc 33.3 g/dL (32-36); Mean Corpuscular Volume 93.1 fL (81-99); Mean Platelet Vol. 10.6 fl (6.2-12.0); Monocyte# 0.54 X10^3/uL; Monocyte% 10.7 % (0-10); NRBC Flagged by Analyzer 0 % (0-5); Neutrophil # 3.43 X10^3/uL (2.7-7.7); Neutrophil % 67.9 % (47-70); Platelet Count 219 K/mm3 (150-450); RBC Distribution Width CV 12.5 % (11.6-14.6); RBC Distribution Width SD 43.1 fl (35.1-43.9); Red Blood Count 4.48 M/mm3 (4.2-5.4); White Blood Count 5.1 K/mm3 (4.4-11.0)
[2023-11-28 10:00] VITALS: BP 146/75; PULSE 73; RESP 15; O2SAT 97
[2023-11-28 10:19] LABS: AST(SGOT) 22 U/L (15-37); Alanine Aminotransfer ALT/SGPT 31 U/L (13-56); Albumin, Serum 3.7 g/dL (3.2-5.0); Alkaline Phosphatase 69 U/L (45-117); Anion Gap 4 (5-15); BUN 15 mg/dL (7-18); BUN/Creat Ratio 18.5 RATIO (10-20); Chloride 106 mmol/L (98-107); Creatinine, Serum 0.81 mg/dL (0.55-1.02); EST Glomerular Filtration Rate 76 mL/min (>60); Est Glom Filt Rate - Afr Amer 92 mL/min (>60); Globulin 3.8 g/dL (2.2-4.2); Glucose 115 mg/dL (74-106); Potassium 3.7 mmol/L (3.5-5.1); Protein, Total 7.5 g/dL (6.4-8.2); Sodium Level 136 mmol/L (136-145); Troponin-I HS < 3 pg/mL (3.0-54.0)
[2023-11-28 11:00] VITALS: BP 146/75; PULSE 75; RESP 12; TEMP 36.4; O2SAT 97
== END 2023-11-28 11:19 | disposition home or self-care (01) ==
PROVIDERS: Emergency Provider Emergency Medicine; PCP Family Medicine; Visit Provider Emergency Medicine
DX: S16.1XXA Strain of muscle, fascia and tendon at neck level, initial encounter (principal); S39.012A Strain of muscle, fascia and tendon of lower back, initial encounter; S20.214A Contusion of middle front wall of thorax, initial encounter; V87 Traffic accident of specified type but victim's mode of transport unknown; Y93.89 Activity, other specified; I10 Essential (primary) hypertension; E78.00 Pure hypercholesterolemia, unspecified; Z86.16 Personal history of COVID-19; Z79.899 Other long term (current) drug therapy; Z87.891 Personal history of nicotine dependence
CPT/HCPCS: 70450; 71260; 72125; 74177; 80053; 84484; 85025; 93005; 96360; 96361; 99283; J7030; Q9967; A4216

== ENCOUNTER → 2024-12-09 | Outpatient (CLI) | payer OTHER, SELFPAY ==
[2024-12-09 13:25] LABS: ALB/GLOB Ratio 1.5 RATIO (0.9-2.4); AST(SGOT) 38 U/L (<=31); Alanine Aminotransfer ALT/SGPT 37 U/L (<=34); Albumin, Serum 4.4 g/dL (3.4-4.8); Alkaline Phosphatase 75 U/L (35-104); Anion Gap 14 (5-15); BUN 13 mg/dL (4-19); BUN/Creat Ratio 18.8 RATIO (10-20); Calcium,Total 9.6 mg/dL (7.6-11.0); Carbon Dioxide 22.3 mmol/L (21.0-32.0); Chloride 104 mmol/L (98-108); Cholesterol 200 mg/dL (<=200); Creatinine, Serum 0.69 mg/dL (0.70-1.20); EST Glomerular Filtration Rate 97 (>60); Glucose 99 mg/dL (70-99); High Density Lipoprotein 68 mg/dL; Low Density Lipoprotein Calc. 108 mg/dL; Potassium 4.2 mmol/L (3.3-5.1); Protein, Total 7.4 g/dL (5.9-8.4); Sodium Level 140 mmol/L (133-145); Total Bilirubin 0.63 mg/dL (0.00-1.30); Triglycerides 122 mg/dL; Very Low Density Lipoprotein 24 mg/dL (5-40); cholesterol:hdl ratio screen 2.96
== END | disposition home or self-care (01) ==
LOC: MFPLAB 08:53
PROVIDERS: PCP Family Medicine; Referring Provider Family Medicine; Visit Provider Family Medicine
DX: I10 Essential (primary) hypertension (principal); R73.01 Impaired fasting glucose
CPT/HCPCS: 36415; 80053; 80061; 84443

== ENCOUNTER → 2025-02-08 | Outpatient (CLI) | payer OTHER, SELFPAY ==
[2025-02-08 13:38] LABS: Free T3 2.7 pg/mL (2.18-3.98); T3 Total - Triiodothyronine 1.06 ng/mL (0.80-2.00); T4 Total, Thyroxin 6.5 ug/dL (4.8-13.9)
--- OUTSIDE RECORDS SUMMARY | 2025-02-08 20:30 | XMS RPT_ITS | CCD ---
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 7-18 [facility] Thin prep Papanicolaou smear with manual screeningOrdered By: Bruce Verduzco on 01-08-2023 Thin prep Papanicolaou smear with manual screening 5 5-15 [facility] Culture, urineOrdered By: Dr Jayesh Verduzco on 12-07-2022 Bacteria identified Cx Nom (U) Positive [facility] Basophil percentageOrdered B y: Dr. Verduzco on 12-05-2022 Basophil percentage 0 SEEN /hpf 0-5 [facility] Bilirubin Test strip Ql (U)O rdered By: Dr. Verduzco on 12-05-2022 Bilirubin Ql (U) Negative Negative [facility] Culture, urineOrdered By: Rebecca Verduzco on 12-05-2022 Bacteria identified Cx Nom (U) Positive [facility] Ketones Test strip Ql (U)Ord ered By: Dr. Verduzco on 12-05-2022 Ketones Ql (U) Negative Negative [facility] Mucus LM Ql (Urine sed)Order ed By: Dr. Verduzco on 12-05-2022 Mucus Ql (Urine sed) 0 SEEN /hpf [facility] Nitrite Test strip Ql (U)Ord ered By: Dr. Verduzco on 12-05-2022 Nitrite Ql (U) Negative Negative [facility] Protein Test strip Ql (U)Ord ered By: Dr. Verduzco on 12-05-2022 Protein Ql (U) Negative Negative [facility] Squamous epithelial cells de tection in urine sediment by light microscopyOrdered By: Dr. Verduzco on 12-05-2022 Epithelial cells.squamous LM Ql (Urine sed) 0-5 SEEN /hpf 5-10 [facility] Urine blood detectionOrdered By: Dr. Verduzco on 12-05-2022 RBC Ql (U) 10 /ul Negative [facility] RBC Ql (U) 0-5 SEEN /hpf 0-5 [facility] Urine clarityOrdered By: Dr. Verduzco on 12-05-2022 Clarity (U) Sl. Cloudy Clear [facility] Urine color determinationOrd ered By: Dr. Verduzco on 12-05-2022 Color (U) Yellow Yellow [facility] Urine glucose detectionOrder ed By: Dr. Verduzco on 12-05-2022 Glucose Ql (U) Normal mg/dl Normal [facility] Urine leukocyte esterase det ection by dipstickOrdered By: Dr. Verduzco on 12-05-2022 Leukocyte esterase Test strip Ql (U) Negative Negative [facility] Urine pHOrdered By: Dr. Mauricio lan on 12-05-2022 pH (U) 8.0 [pH] 5.0 - 8.0 [facility] Urine sediment bacteria coun t by microscopy (number/high power field)Ordered By: Dr. Verduzco on 12-05-2022 Bacteria LM.HPF (Urine sed) [#/Area] 0 /[HPF] None Seen [facility] Urine specific gravity measu rementOrdered By: Dr. Verduzco on 12-05-2022 Specific gravity (U) [Rel density] 1.010 1.002-1.030 [facility] Urobilinogen Auto test strip Ql (U)Ordered By: Dr. Verduzco on 12-05-2022 Urobilinogen Ql (U) Normal mg/dl Normal [facility] Culture, urineOrdered By: Dr Jayesh Verduzco on 08-31-2022 Bacteria identified Cx Nom (U) Positive [facility] Basophil percentageOrdered B y: Dr. Verduzco on 08-27-2022 Bilirubin [Mass/Vol] 0.40 mg/dL 0.20-1.00 [facility] Comment on above: For patients on eltr ombopag therapy, use of Dimension Hubbard TBIL is not recommended. Chloride [Moles/Vol] 107 mmol/L 98-107 [facility] Cholesterol [Mass/Vol] 218 mg/dL <200 [facility] Comment on above: <200 mg/dL Desirable 200-240 mg/dL Borderline >240 mg/dL High Risk Glucose [Mass/Vol] 89 mg/dL 74-106 [facility] Potassium [Moles/Vol] 4.0 mmol/L 3.5-5.1 [facility] Protein [Mass/Vol] 7.5 g/dL 6.4-8.2 [facility] Sodium [Moles/Vol] 140 mmol/L 136-145 [facility] Triglyceride [Mass/Vol] 165 mg/dL <199 [facility] Comment on above: The drugs N-Acetylcy steine and Metamizole may falsely depress this assay.Serum Triglycerides Reference Interval Normal <150 mg/dL Borderline high 150 - 199 mg/dL High 200 - 499 mg/dL Very High > or = 500 mg/dL Laboratory - Chemistry and C hemistry - challengeOrdered By: Dr. Verduzco on 08-27-2022 ALP [Catalytic activity/Vol] 66 U/L 45-117 [facility] ALT [Catalytic activity/Vol] 27 U/L 13-56 [facility] CO2 [Moles/Vol] 25.0 mmol/L 21.0-32.0 [facility] Globulin (S) [Mass/Vol] 4.1 g/dL 2.2-4.2 [facility] Urea nitrogen/Creatinine [Mass ratio] 16.7 mg/mg 10-20 [facility] No Panel InformationOrdered By: Dr. Verduzco on 08-27-2022 Estimated GFR (MDRD) Amer 118 mL/min >60 [facility] Comment on above: GFR Calc Estimated GFR (MDRD) Non-Af Amer 97 mL/min >60 [facility] Comment on above: Non- GFR Calc Thyroid Stimulating Hormone (TSH) 1.38 uIU/mL 0.358-3.74 [facility] Vitamin D 25-Hydroxy 16.8 ng/mL [facility] Comment on above: Vitamin D 25(OH) Sta tus Range Deficiency <20 ng/mL (50nmol/L) Insufficiency 20 - 30 ng/mL (50 - 75 nmol/L) Sufficiency 30 - 100 ng/mL (75 - 250 nmol/L) Toxicity >100 ng/mL (>250 nmol/L) Serum or plasma albumin cherelle urement (mass/volume)Ordered By: Dr. Verduzco on 08-27-2022 Albumin [Mass/Vol] 3.4 g/dL 3.2-5.0 [facility] Serum or plasma albumin/glob ulin mass ratioOrdered By: Dr. Verduzco on 08-27-2022 Albumin/Globulin [Mass ratio] 0.8 {ratio} 0.9-2.4 [facility] Serum or plasma calcium cherelle urement (mass/volume)Ordered By: Dr. Verduzco on 08-27-2022 Calcium [Mass/Vol] 9.0 mg/dL 8.5-10.1 [facility] Serum or plasma cholesterol in HDL measurement (mass/volume)Ordered By: Dr. Verduzco on 08-27-2022 Cholesterol in HDL [Mass/Vol] 71 mg/dL >40 [facility] Comment on above: The drugs N-Acetylcy steine and Metamizole may falsely depress this assay. Reference Range HDL <40 mg/dL Low HDL Cholesterol HDL >or= 60 mg/dL High HDL Cholesterol Serum or plasma cholesterol in VLDL measurement (mass/volume)Ordered By: Dr. Verduzco on 08-27-2022 Cholesterol in VLDL [Mass/Vol] 33 mg/dL 5-40 [facility] Serum or plasma creatinine m easurement (mass/volume)Ordered By: Dr. Verduzco on 08-27-2022 Creatinine [Mass/Vol] 0.66 mg/dL 0.55-1.02 [facility] Comment on above: The validity of the calculated GFR & GFRAA in patients over 70 years has not been determined. Clinical correlation is essential. Serum or plasma low density lipoprotein (LDL) cholesterol measurement (mass/volume)Ordered By: Dr. Verduzco on 08-27-2022 Cholesterol in LDL [Mass/Vol] 114 mg/dL 0-130 [facility] Serum or plasma urea nitroge n measurement (mass/volume)Ordered By: Dr. Verduzco on 08-27-2022 Urea nitrogen [Mass/Vol] 11 mg/dL 7-18 [facility] Thin prep Papanicolaou smear with manual screeningOrdered By: Dr. Verduzco on 08-27-2022 Thin prep Papanicolaou smear with manual screening 16 U/L 15-37 [facility] Thin prep Papanicolaou smear with manual screening 8 5-15 [facility] Cervical or vagninal specime n microscopic examination by cytology stain (reported asOrdered By: Charlette Stathopoulos on 06-15-2022 Cytology report Cyto stain Doc (Cvx/Vag) Comment . [facility] Comment on above: The Pap smear is a s creening test designed to aid in thedetection of premalignant and malignant conditions of theuterine cervix. It is not a diagnostic procedure andshould not be used as the sole means of detecting cervicalcancer. Both false-positive and false-negative reports dooccur. Detection in cervical specim en of any of human papilloma virus (HPV) 16, 18, 31, 33,Ordered By: Charlette Cuello on 06-15-2022 HPV 16+18+31+33+35+39+45+51+ 52+56+58+59+66+68 DNA Probe+sig amp Ql (Cvx) Negative Negative [facility] Comment on above: This nucleic acid am plification test detects fourteen high-risk HPV types (16,18,31,33,35,39,45,51,52,56,58,59,66,68)without differentiation.Performed at: [facility] [id number] Director: Neda Dutton MD, Phone: [phone] at: =[facility] [id number] Director: Neda Dutton MD, Phone: [phone] Laboratory - CytologyOrdered By: Charlette Cuello on 06-15-2022 Hand Hide Stretcher Cyto stain Nom (Cvx/Vag) [ID] Comment . [facility] Comment on above: Roxanne Lake, Cytot echnologist (ASCP) Laboratory - Miscellaneous t estsOrdered By: Charlette Cuello on 06-15-2022 Service comment (Unsp spec) [Interp] Comment . [facility] Comment on above: This liquid based Th inPrep(R) pap test was screened withthe use of an image guided system. Service comment (Unsp spec) [Interp] . . [facility] No Panel InformationOrdered By: Charlette Cuello on 06-15-2022 Pathology report final diagnosis Narrative Comment . [facility] Comment on above: NEGATIVE FOR INTRAEP ITHELIAL LESION OR MALIGNANCY. Laboratory - Microbiology an d Antimicrobial susceptibilityon 02-09-2022 SARS-CoV-2 (COVID-19) RNA JUAN MANUEL+probe Ql (Unsp spec) Negative Not Detect [facility] Work Phone: Comment on above: Normal Reference Ran ge: Not DetectedMethod:(RT-PCR) real-time reverse transcriptase PCRLuminex VIRGINIE Instrument*The Food and Drug Administration (FDA) has issued an Emergency Use Authorization (EAU) for the LoopUp SARS-CoV-2 Assay for the rapid detection of the virus that causes COVID-19. This test has been validated, but the FDAs independent review of this validation is pending.*Negative results do not preclude infection and should not be used as the sole basis for treatment or patient management. Optimum specimen types and timing for peak viral levels during infections caused by SARS-CoV-2 have not been determined. Collection of multiple specimens from the same patient may be necessary to detect the virus. The possibility of a false negative result should be considered if the patient has clinical presentation or has had recent exposure. Basophil percentageon 2021 Chloride [Moles/Vol] 107 mmol/L 98-107 [facility] Work Phone: Glucose [Mass/Vol] 126 mg/dL 74-106 [facility] Work Phone: Comment on above: Fasting Glucose resu lt greater than or equal to 126 mg/dL suggests DIABETES MELLITUS per A.D.A. criteria. Potassium [Moles/Vol] 4.4 mmol/L 3.5-5.1 [facility] Work Phone: Sodium [Moles/Vol] 137 mmol/L 136-145 [facility] Work Phone: WBC (Bld) [#/Vol] 12.9 10*3/uL 4.4-11.0 [facility] Work Phone: Blood erythrocytes count (nu mber/volume)on 10-18-2021 RBC (Bld) [#/Vol] 3.84 10*6/uL 4.2-5.4 [facility] Work Phone: Blood hemoglobin measurement (mass/volume)on 10-18-2021 Hemoglobin (Bld) [Mass/Vol] 11.7 g/dL 12.0-15.0 [facility] Work Phone: Blood platelet mean volumeon 10-18-2021 Platelet mean volume (Bld) [Entitic vol] 10.9 fL 6.2-12.0 [facility] Work Phone: Determination of erythrocyte mean corpuscular volume (MCV)on 10-18-2021 MCV (RBC) [Entitic vol] 92.7 fL 81-99 [facility] Work Phone: Hematocrit Auto (Bld) [Volum e fraction]on 10-18-2021 Hematocrit (Bld) [Volume fraction] 35.6 % 37-47 [facility] Work Phone: Laboratory - Chemistry and C hemistry - challengeon 10-18-2021 CO2 [Moles/Vol] 24.0 mmol/L 21.0-32.0 [facility] Work Phone: Urea nitrogen/Creatinine [Mass ratio] 11.9 mg/mg 10-20 [facility] Work Phone: Laboratory - Hematology and Cell countson 10-18-2021 Erythrocyte distribution width (RBC) [Entitic vol] 43.2 fL 35.1-43.9 [facility] Work Phone: Erythrocyte distribution width (RBC) [Ratio] 12.8 % 11.6-14.6 [facility] Work Phone: MCH (RBC) [Entitic mass] 30.5 pg 27.0-32.0 [facility] Work Phone: MCHC Auto (RBC) [Mass/Vol]on 10-18-2021 MCHC (RBC) [Mass/Vol] 32.9 g/dL 32-36 [facility] Work Phone: No Panel Informationon 10-18 Estimated Creatinine Clearance Calc 74.43 ml/min [facility] Work Phone: Estimated GFR (MDRD) Amer 88 mL/min >60 [facility] Work Phone: Comment on above: GFR Calc Estimated GFR (MDRD) Non-Af Amer 73 mL/min >60 [facility] Work Phone: Comment on above: Non- GFR Calc Platelets bldon 10-18-2021 Platelets (Bld) [#/Vol] 239 10*3/uL 150-450 [facility] Work Phone: Serum or plasma calcium cherelle urement (mass/volume)on 10-18-2021 Calcium [Mass/Vol] 9.2 mg/dL 8.5-10.1 [facility] Work Phone: Serum or plasma creatinine m easurement (mass/volume)on 10-18-2021 Creatinine [Mass/Vol] 0.84 mg/dL 0.55-1.02 [facility] Work Phone: Comment on above: The validity of the calculated GFR & GFRAA in patients over 70 years has not been determined. Clinical correlation is essential. Serum or plasma urea nitroge n measurement (mass/volume)on 10-18-2021 Urea nitrogen [Mass/Vol] 10 mg/dL 7-18 [facility] Work Phone: Thin prep Papanicolaou smear with manual screeningon 10-18-2021 Thin prep Papanicolaou smear with manual screening 6 5-15 [facility] Work Phone: Glucose Glucometer (dC) [M ass/Vol]on 10-17-2021 Glucose [Mass/Vol] 111 mg/dL 74-106 [facility] Work Phone: Comment on above: MANAGEMENT OF PATIEN T CARE PER NURSING PROTOCOL Absolute lymphocyte counton 10-05-2021 Lymphocytes Auto (Unsp spec) [#/Vol] 1.45 10*3/uL 0.83-4.51 [facility] Work Phone: Basophil percentageon 2021 Basophils/100 WBC (Bld) 1.4 % 0-1 [facility] Work Phone: Eosinophils/100 WBC (Bld) 3.3 % 0-5 [facility] Work Phone: [phone] Neutrophils (Bld) [#/Vol] 2.9 10*3/uL 2.0-7.7 [facility] Work Phone: Neutrophils/100 WBC (Bld) 56.7 % 47-70 [facility] Work Phone: [phone] Blood lymphocytes/100 leukoc yteson 10-05-2021 Lymphocytes/100 WBC (Bld) 28.0 % 19-41 [facility] Work Phone: [phone] Blood monocytes/100 leukocyt eson 10-05-2021 Monocytes/100 WBC (Bld) 10.2 % 0-10 [facility] Work Phone: INR in Blood by Coagulation assayon 10-05-2021 INR Coag (Bld) [Relative time] 1.0 {INR} [facility] Work Phone: Laboratory - Chemistry and C hemistry - challengeon 10-05-2021 Magnesium [Mass/Vol] 2.2 mg/dL 1.6-2.6 [facility] Work Phone: Laboratory - Coagulationon 0 10-05-2021 aPTT Coag (Bld) [Time] 24.9 s 24.1-36.2 [facility] Work Phone: PT Coag (PPP) [Time] 12.3 s 11.7-14.9 [facility] Work Phone: Laboratory - Hematology and Cell countson 10-05-2021 Immature granulocytes/100 WBC (Bld) 0.400 % 0.0-0.9 [facility] Work Phone: Comment on above: IG% - Immature Granu locytes (promyelocytes, myelocytes and metamyelocytes) > 1% indicates that a LEFT SHIFT is Present. Nucleated RBC/100 WBC (Bld) [Ratio] 0 % 0-5 [facility] Work Phone: No Panel Informationon 10-05 Fructosamine 230 umol/L 0-285 [facility] Work Phone: Comment on above: Published reference interval for apparently healthysubjects between age 20 and 60 is 205 - 285 umol/L and in apoorly controlled diabetic population is 228 - 563 umol/Lwith a mean of 396 umol/L.Performed at: [address] [id number] Director: Erwin Alberto PhD, Phone: [phone] Nasal Screen MRSA/MSSA [facility] Work Phone: No Panel Information Nasal Screen MRSA/MSSA [facility] Work Phone: Vital Signs Date Time Vital Sign Value Performing Clinician Faci lity 11-29-2021 12:54-0400 Body height 175.[address] Bruce Verduzco Work Phone: [facility] Work Phone: 11-29-2021 12:54-0400 Body mass index (BMI) [Ratio] 35.4 kg/m2 Dr. Bruce Verduzco Work Phone: [facility] Work Phone: 11-29-2021 12:54-0400 Body weight 108.[address] Bruce Verduzco Work Phone: [facility] Work Phone: 10-18-2021 17:45-0400 Body temperature 99.7 [degF] Dr. Bruce Verduzco Work Phone: [facility] Work Phone: 10-18-2021 17:45-0400 Diastolic blood pressure 74 mm[Hg] Dr. Bruce Verduzco Work Phone: [facility] Work Phone: 10-18-2021 17:45-0400 Heart rate 92 /min Dr. Bruce Verduzco Work Phone: [facility] Work Phone: 10-18-2021 17:45-0400 Respiratory rate 18 /min Dr. Bruce Verduzco Work Phone: [facility] Work Phone: 10-18-2021 17:45-0400 SaO2% (BldA) [Mass fraction] 97 % Dr. Bruce Verduzco Work Phone: [facility] Work Phone: 10-18-2021 17:45-0400 Systolic blood pressure 161 mm[Hg] Dr. Bruce Verduzco Work Phone: [facility] Work Phone: 10-17-2021 12:48-0400 Body height 175.[address] Bruce Verduzco Work Phone: [facility] Work Phone: 10-17-2021 12:48-0400 Body mass index (BMI) [Ratio] 36.4 kg/m2 Dr. Bruec Verduzco Work Phone: [facility] Work Phone: 10-17-2021 12:48-0400 Body weight 111.[address] Bruce Verduzco Work Phone: [facility] Work Phone: 09-25-2021 09:38-0400 Body mass index (BMI) [Ratio] 37.1 kg/m2 Dr. Bruce Verduzco Work Phone: [facility] Work Phone: 09-25-2021 09:38-0400 Body weight 112.[address] Bruce Verduzco Work Phone: [facility] Work Phone: 09-25-2021 09:38-0400 Body mass index (BMI) [Ratio] 37.1 kg/m2 Dr. Bruce Verduzco Work Phone: [facility] Work Phone: 09-25-2021 09:38-0400 Body weight 112.[address] Bruce Verduzco Work Phone: [facility] Work Phone: Encounters Encounter Date Encounter Type Care Provider Facility Start: 12-09-2024 End: 12-09-[address] Amadou Verduzco MD Work Phone: [facility] Work Phone: Start: 12-09-2024 End: 12-09-[address] Amadou Verduzco MD -Laboratory [facility] Start: 12-09-2024 End: 12-09-2024 ambulatory Amadou Verduzco Facility:[facility] Start: 08-02-2023 End: 08-02-2023 ambulatory [facility] Work Phone: Start: 08-02-2023 End: 08-02-2023 Patient encounter procedure [facility] Work Phone: Start: 01-25-2023 Non-patient / Non-visit Dr. Bruce Verduzco Work Phone: [facility] Start: 01-25-2023 End: 01-25-[address] Bruce Verduzco Work Phone: [facility] Work Phone: Start: 01-25-2023 End: 01-25-[address] Bruce Verduzco Work Phone: [facility] Work Phone: Start: 01-08-2023 End: 01-08-2023 ambulatory [facility] Work Phone: Start: 01-08-2023 End: 01-08-2023 [facility] Start: 12-05-2022 End: 12-05-2022 ambulatory [facility] Work Phone: Start: 12-05-2022 End: 12-05-2022 Patient encounter procedure [facility], [facility] Start: 08-30-2022 End: 08-30-2022 ambulatory [facility] Work Phone: Start: 08-30-2022 End: 08-30-2022 Patient encounter procedure [facility]Labor[facility], Specimen Start: 08-27-2022 End: 08-27-2022 ambulatory [facility] Work Phone: Start: 08-27-2022 End: 08-27-2022 Patient encounter procedure [facility] Start: 07-04-2022 End: 07-04-2022 ambulatory [facility] Work Phone: Start: 07-04-2022 End: 07-04-2022 Patient encounter procedure [facility] Start: 06-15-2022 End: 06-15-2022 ambulatory [facility] Work Phone: Start: 06-15-2022 End: 06-15-2022 Patient encounter procedure [facility]Labor[facility], Specimen Start: 02-09-2022 End: 02-09-[address] Bruce Verduzco Work Phone: [facility]Laboratory, Specimen Start: 01-10-2022 End: 01-10-[address] Bruce Verduzco Work Phone: [facility] Start: 12-28-2021 End: 12-28-[address] Bruce Verduzco Work Phone: [facility] Start: 11-29-2021 End: 11-29-[address] Bruce Verduzco Work Phone: [facility] Start: 11-01-2021 End: 11-01-[address] Bruce Verduzco Work Phone: [facility] Start: 10-18-2021 Non-patient / Non-[facility] Start: 10-17-2021 End: 10-18-2021 Evaluation and management of inpatient Dr. Bruce Verduzco Work Phone: [facility] 3 Start: 10-17-2021 Non-patient / Non-visit Dr. Bruce Verduzco Work Phone: [facility] Start: 10-06-2021 End: 10-06-[address] Bruce Verduzco Work Phone: [facility] Start: 10-05-2021 Non-patient / Non-visit Dr. Bruce Verduzco Work Phone: [facility] Start: 09-29-2021 End: 09-29-[address] Bruce Verduzco Work Phone: [facility] Start: 09-28-2021 End: 09-28-[address] Bruce Verduzco Work Phone: [facility] Start: 09-28-[address] Mauricio Verduzco Work Phone: [facility] Start: 09-25-2021 End: 09-25-[address] Bruce Verduzco Work Phone: [facility] Procedures Date Procedure Procedure Detail Performing Clinician Start: 08-02-2023 Screening mammography Start: 01-25-2023 Radionuclide imaging of perfusion of myocardium under exercise stress Dr. Bruce Verduzco Work Phone: Start: 12-05-2022 Bacteria identified in Urine by Culture Start: 12-05-2022 Urine culture Start: 07-04-2022 Screening mammography Start: 11-29-2021 Radiologic examinati on of knee Dr. Bruce Verduzco Work Phone: Start: 10-17-2021 Radiologic examinati on of knee Dr. Bruce Verduzco Work Phone: Start: 10-17-2021 Total Knee Replaceme nt Robotic Arm Cornelio (Right) Dr. Bruce Verduzco Work Phone: Start: 10-13-2021 H/O: artificial joint Status p ost knee replacement Comment on above: Right total knee art hroplasty CT guided Robotic Assisted. Dr. Finley Start: 10-13-2021 History of operative procedure on knee Status post knee replacement Dr. Bruce Verduzco Work Phone: Start: 10-05-2021 Nasal Screen MRSA/MSSA Dr. Bruce Verduzco Work Phone: Start: 09-29-2021 MRI of lower extremity Dr. Bruce Verduzco Work Phone: Start: 09-25-2021 Radiologic examinati on of knee Dr. Bruce Verduzco Work Phone: Bacteria identified in Urine by Culture Nasal Screen MRSA/MSSA Dr. Carlos Verduzco Work Phone: Urine culture Urine culture Plan of Treatment Date Care Activity Detail Author Start: 10-18-2021 Patient discharge [facility] Work Phone: Start: 10-17-2021 Anesth open/surg arthrs total knee arthroplasty ANESTH KNEE ARTHROPLASTY [facility] Work Phone: Start: 10-17-2021 Arthrp kne condyle&platu medial&lat compartments TOTAL KNEE ARTHROPLASTY [facility] Work Phone: Start: 10-17-2021 Injection aa&/strd femoral nerve NJX AA&/STRD FEMORAL NERVE [facility] Work Phone: Start: 10-17-2021 Following clinical pathway protocol [facility] Work Phone: Start: 10-17-2021 [facility] Work [facility]: Start: 10-17-2021 Admission procedure [facility] Work Phone: Start: 10-17-2021 Ambulation therapy management [facility] Work Phone: Start: 10-17-2021 Application of antithromboembolic stockings [facility] Work Phone: Start: 10-17-2021 Application of device [facility] Work Phone: Start: 10-17-2021 Application of elastic bandage [facility] Work Phone: Start: 10-17-2021 Application of intermittent pneumatic compression device [facility] Work Phone: Start: 10-17-2021 Assessment of risk of venous thromboembolism [facility] Work Phone: Start: 10-17-2021 Catheterization of vein [facility] Work Phone: Start: 10-17-2021 Exercises [facility] Work Phone: Start: 10-17-2021 Following clinical pathway protocol [facility] Work Phone: Start: 10-17-2021 Incentive spirometry [facility] Work Phone: Start: 10-17-2021 Introduction of urinary catheter [facility] Work Phone: Start: 10-17-2021 Measuring intake and output [facility] Work Phone: Start: 10-17-2021 Neurovascular assessment [facility] Work Phone: Start: 10-17-2021 Patient education [facility] Work Phone: Start: 10-17-2021 Procedure discontinued [facility] Work Phone: Start: 10-17-2021 Provision of activity privileges [facility] Work Phone: Start: 10-17-2021 Referral to occupational therapist [facility] Work Phone: Start: 10-17-2021 Referral to service [facility] Work Phone: Start: 10-17-2021 Vital signs measurements [facility] Work Phone: Start: 10-17-2021 Wound care [facility] Work Phone: Start: 10-17-2021 [facility] Work Phone: Path report.final Dx Spec [facility] Work Phone: Patient referral [facility] Work Phone: Immunizations Immunization Date Immunization Notes Care Provider Cony arreaga 07-29-2021 Covid (Pfizer) Dr. Gopal Verduzco Work Phone: [facility] Payers Date Payer Category Payer Private Health Insurance [id number] 2024 Self-pay [id number] Medicaid MEDICAID [id number] Private Health Insurance [id number] Unknown [id number] Social History Date Type Detail Facility [facility] Work Phone: Start: 10-06-2021 End: 01-10-2022 Tobacco smoking status NHIS Unknown if ever smoked [facility] Start: 1960 Sex Assigned At Female W [facility] Start: 11-28-2023 Tobacco smoking stat us NHIS Ex-smoker (finding) [facility] Medical Equipment Procedure Code Equipment Code Equipment Origin al Text Equipment Identifier Dates ([id number]) Metal-backed pat riaz prosthesis [id number] FDA Start: 10-17-2021 ([id number]) Coated knee femu r prosthesis [id number] FDA Start: 10-17-2021 ([id number]) Coated knee tibi a prosthesis [id number] FDA Start: 10-17-2021 ([id number]) Tibial insert [id number] FDA Start: 10-17-2021 Goals Date Patient Goal Desired Activity /State Functional Status Date Assessment Result Facility 10-18-2021 Functional status Activity Abili ty With Assist of 1 [facility] Work Phone: 10-18-2021 Functional status Ambulates;Mir r;Bathroom Privilege [facility] Work Phone: Mental Status Date Assessment Result Facility 10-18-2021 Cognitive function Level Of Cons ciousness Awake;Alert;Appropriate [facility] Work Phone: 10-18-2021 Cognitive function Appropriate [facility] Work Phone: 10-18-2021 Cognitive function Voice/Name [facility] Work Phone: Clinical Note 06-15-2022 Note Date & Type Note Facility 06-15-2022 Note [facility] Work Phone: Pap Smear Specimen Adequacy June 15, 2022 2:05pm Comment . Satisfactory for evaluation. Comment on above: Satisfactory for cain luation. Clinical Note 06-15-2022 Note Date & Type Note Facility 06-15-2022 Note [facility] Pap Smear Specimen Adequacy June 15, 2022 2:05pm Comment . Satisfactory for evaluation. Comment on above: Satisfactory for cain luation. Clinical Note 06-15-2022 Note Date & Type Note Facility 06-15-2022 Note [facility] Pap Smear Specimen Adequacy June 15, 2022 2:05pm Comment . Satisfactory for evaluation. Comment on above: Satisfactory for cain luation. Evaluation note 04-01-2022 Note Date & Type Note Facility 10-13-2021 Evaluation note Diagnosis Onset Date Right knee DJD acute Right knee pain acute Right knee pain acute Other acute postprocedural pain acute Status post knee replacement October, acute Status post knee replacement October, acute [facility] Work Phone: Evaluation note 10-13-2021 Note Date & Type Note Facility 10-13-2021 Evaluation note Diagnosis Onset Date Other acute postprocedural pain acute Status post knee replacement October, acute Status post knee replacement October, acute Orthopedic aftercare acute [facility] Work Phone: Evaluation note Note Date & Type Note Facility Evaluation note Diagnosis Onset Date Right knee DJD acute Right knee pain acute Right knee pain acute [facility] Work Phone: Evaluation note Note Date & Type Note Facility Evaluation note No assessment information availa [facility] Work Phone: Reason for referral (narrative) Note Date & Type Note Facility Reason for referral (narrative) No reason for referral information available [facility] Work Phone: Chief Complaint and Reason for Visit Chief Complaint RIGHT KNEE xray R KNEE OSTEOARTHRITIS. RX HERE RT TKA TEMPLATING RT TOTAL KNEE W DILEEP right knee RT TOTAL KNEE W DILEEP RT TOTAL KNEE W DILEEP RT TOTAL KNEE W DILEEP Reason for Visit Right knee DJD Right knee pain Right knee pain Chief Complaint RIGHT KNEE xray R KNEE OSTEOARTHRITIS. RX HERE RT TKA TEMPLATING RT TOTAL KNEE W DILEEP right knee RT TOTAL KNEE W DILEEP RT TOTAL KNEE W DILEEP RT TOTAL KNEE W DILEEP right knee RIGHT KNEE xray DR JASON JEONG Reason for Visit Right knee DJD Right knee pain Right knee pain Other acute postprocedural pain Status post knee replacement Status post knee replacement Chief Complaint right knee RIGHT KNEE xray DR JASON JEONG RIGHT KNEE Reason for Visit Other acute postproc edural pain Status post knee replacement Status post knee replacement Orthopedic aftercare Chief Complaint SCREENING Chief Complaint CHEST PAIN CHEST PAIN Family History No Family History Records Found Relationship Condition Age at Onset Recorded Date/T nathalie daughter Malignant neoplasm of breast Unknown father Diabetes mellitus Unknown mother Diabetes mellitus Unknown Cardiac disease Unknown Advance Directives No Advanced Directives Records Found Advance Directive Response Recorded Date/ Time Living Will No October 17, 2021 12:48pm Power of Biomedical Photographer No October 17 12:48pm Advance Directive Response Recorded Date/ Time Living Will No October 17, 2021 11:48am Power of Biomedical Photographer No October 17 11:48am Summary Purpose Additional Source Comments Goals (unrecognized section and content) Goals may be documented in a n alternate sectionGoals may be documented in an alternate sectionGoals may be documented in an alternate sectionGoals may be documented in an alternate sectionGoals may be documented in an alternate sectionGoals may be documented in an alternate sectionGoals may be documented in an alternate sectionGoals may be documented in an alternate sectionGoals may be documented in an alternate sectionGoals may be documented in an alternate sectionGoals may be documented in an alternate section Care Teams (unrecognized sec tion and content) Team Status: Active Member Role Status Dates Dr. Bruce Verduzco MD Family Provider Active Dr. Bruce Verduzco MD Primary Care Provider Activ e Team Status: Inactive Member Role Status Dates Dr. Bruce Verduzco MD Primary Care Provider Activ e Charlette Cuello TELEPHONE INTERVIEWER-C Attending Provider Active Team Status: Inactive Member Role Status Dates Dr. Bruce Verduzco MD Primary Care Provider, Atte nding Provider Active Team Status: Active Member Role Status Dates Dr. Bruce Verduzco MD Primary Care Provider, Attending Provider, Referring Provider Active Team Status: Inactive Member Role Status Dates Dr. Bruce Verduzco MD Primary Care Provider, Attending Provider, Referring Provider Active Team Status: Active Member Role Status Dates Dr. Bruce Verduzco MD Primary Care Provider, Referring Provider, Other Provider Active Dr. Joel Baxter MD Attending Provider Active Team Status: Active Member Role Status Dates Dr. Amadou Verduzco MD Family Provider Active Dr. Amadou Verduzco MD Primary Care Provider Acti ve Team Status: Inactive Member Role Status Dates Dr. Amadou Verduzco MD Primary Care Provider Acti ve Start: December 09, 2024 End: December 09, 2024 Dr. Amadou Verduzco MD Attending Provider Active Start: December 09, 2024 End: December 09, 2024 Dr. Amadou Verduzco MD Referring Provider Active Start: December 09, 2024 End: December 09, 2024 INFORMATION SOURCE (unrecogn ized section and content) DATE CREATED AUTHOR 12/15/2024 [facility] FOR RECORDS PERTAINING TO PATIENTS WHO ARE OR HAVE BEEN ENROLLED IN A CHEMICAL DEPENDENCY/SUBSTANCEABUSE PROGRAM, SOME INFORMATION MAY BE OMITTED. This clinical summary was aggregated from multiple sources. Caution should be exercised in using it in the provision of clinical care. This summary normalizes information from multiple sources, and as a consequence, information in this document may materially change the coding, format and clinical context of patient data. In addition, data may be omitted in some cases. CLINICAL DECISIONS SHOULD BE BASED ON THE PRIMARY CLINICAL RECORDS. [employer] provides no warranty or guarantee of the accuracy or completeness of information in this document.
[2025-02-09 15:08] LABS: Thyroglobulin, Serum Qt. 15.7 ng/mL (1.5-38.5)
== END | disposition home or self-care (01) ==
LOC: MFPLAB 09:54
PROVIDERS: PCP Family Medicine
DX: R53.83 Other fatigue (principal)
CPT/HCPCS: 36415; 84432; 84436; 84480; 84481; 86800

== ENCOUNTER → 2025-02-24 | Outpatient (CLI) | payer OTHER, SELFPAY ==
[2025-03-01 12:08] LABS: HPV APTIMA, High Risk Negative (Negative)
== END | disposition home or self-care (01) ==
LOC: LAB 05-26 12:02
PROVIDERS: PCP Family Medicine; Visit Provider Family Medicine
DX: Z01.419 Encounter for gynecological examination (general) (routine) without abnormal findings (principal)
CPT/HCPCS: 87624; 88175; G0145

== ENCOUNTER → 2025-03-01 | Outpatient (CLI) | payer OTHER, SELFPAY ==
--- NOTE | 2025-03-01 10:45 | BI_ITS ---
EXAM: SCRN MAMM (CAD)W/[place] BILAT DATE: 03/01/2025 CLINICAL HISTORY: F, Age 64 y/o , POST MENOPAUSE TECHNIQUE: SCRN MAMM (CAD)W/[place] BILAT COMPARISON: Prior exam(s) dated 08/02/2023, 07/04/2022, and 04/04/2021. FINDINGS: TISSUE DENSITY: The breasts are almost entirely fatty. Bilateral Breast Mammographic Findings: No suspicious masses, suspicious cluster of microcalcifications, architectural distortion or secondary signs of malignancy is identified in either breast. Stable nodular masslike densities are seen in both breasts. Benign-appearing round and punctate calcifications are seen in both breasts. A benign-appearing macrocalcification is seen in the left breast. A stable 3 mm partially obscured isodense mass is seen in the superior, middle 3rd aspect of the right breast. BI/SCRN MAMM (CAD)W/[place] BILAT IMPRESSION: Benign screening mammogram. OVERALL FINAL ASSESSMENT BI-RADS 2: BENIGN RECOMMENDATION: Routine annual follow-up in 1 Year A letter with findings and recommendations will be mailed to the patient. Reading Location: [id number]
--- OUTSIDE RECORDS SUMMARY | 2025-03-01 22:07 | XMS RPT_ITS | CCD ---
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 vol] 10.9 fL 6.2-12.0 [facility] Determination of erythrocyte mean corpuscular volume (MCV)Ordered By: Bruce Verduzco on 01-08-2023 MCV (RBC) [Entitic vol] 93.5 fL 81-99 [facility] Hematocrit Auto (Bld) [Volum e fraction]Ordered By: Bruce Verduzco on 01-08-2023 Hematocrit (Bld) [Volume fraction] 41.5 % 37-47 [facility] - Chemistry and C hemistry - challengeOrdered By: Bruce Verduzco on 01-08-2023 CO2 [Moles/Vol] 24.0 mmol/L 21.0-32.0 [facility] Urea nitrogen/Creatinine [Mass ratio] 15.1 mg/mg 10-20 [facility] - Hematology and Cell countsOrdered By: Bruce Verduzco on 01-08-2023 Erythrocyte distribution width (RBC) [Entitic vol] 43.7 fL 35.1-43.9 [facility] Erythrocyte distribution width (RBC) [Ratio] 12.7 % 11.6-14.6 [facility] MCH (RBC) [Entitic mass] 31.1 pg 27.0-32.0 [facility] MCHC Auto (RBC) [Mass/Vol]Or dered By: Bruce Verduzco on 01-08-2023 MCHC (RBC) [Mass/Vol] 33.3 g/dL 32-36 [facility] No Panel InformationOrdered By: Bruce Verduzco on 01-08-2023 Estimated GFR (MDRD) Amer 116 mL/min >60 [facility] Comment on above: GFR Calc Estimated GFR (MDRD) Non-Af Amer 96 mL/min >60 [facility] Comment on above: Non- GFR Calc Thyroid Stimulating Hormone (TSH) 1.69 uIU/mL 0.358-3.74 [facility] Troponin I High Sensitivity < 3 pg/mL 3.0-54.0 [facility] Comment on above: Please Note: [place] t Units and Gender Specific Reference Ranges. For more information see Policy Stat Procedure [facility] High Sensitivity Troponin (TNIH) and attachments. Platelets bldOrdered By: Geovanni Verduzco on 01-08-2023 Platelets (Bld) [#/Vol] 237 10*3/uL 150-450 [facility] Serum or plasma calcium cherelle urement (mass/volume)Ordered By: Bruce Verduzco on 01-08-2023 Calcium [Mass/Vol] 9.5 mg/dL 8.5-10.1 [facility] Serum or plasma creatinine m easurement (mass/volume)Ordered By: Bruce Verduzco on 01-08-2023 Creatinine [Mass/Vol] 0.66 mg/dL 0.55-1.02 [facility] Comment on above: The validity of the calculated GFR & GFRAA in patients over 70 years has not been determined. Clinical correlation is essential. Serum or plasma urea nitroge n measurement (mass/volume)Ordered By: Bruce Verduzco on 01-08-2023 Urea nitrogen [Mass/Vol] 10 mg/dL 7-18 [facility] Thin prep Papanicolaou smear with manual screeningOrdered By: Bruce Verduzco on 01-08-2023 Thin prep Papanicolaou smear with manual screening 5 5-15 [facility] Culture, urineOrdered By: Dr Jayesh Verduzco on 12-07-2022 Bacteria identified Cx Nom (U) Positive [facility] Basophil percentageOrdered B y: Dr. Verduzco on 12-05-2022 Basophil percentage 0 SEEN /hpf 0-5 [facility] Bilirubin Test strip Ql (U)O rdered By: Dr. Verduzco on 12-05-2022 Bilirubin Ql (U) Negative Negative [facility] Culture, urineOrdered By: Rebecca Verduzco on 12-05-2022 Bacteria identified Cx Nom (U) Positive [facility] Ketones Test strip Ql (U)Ord ered By: Dr. Verduzco on 12-05-2022 Ketones Ql (U) Negative Negative [facility] Mucus LM Ql (Urine sed)Order ed By: Dr. Verduzco on 12-05-2022 Mucus Ql (Urine sed) 0 SEEN /hpf [facility] Nitrite Test strip Ql (U)Ord ered By: Dr. Verduzco on 12-05-2022 Nitrite Ql (U) Negative Negative [facility] Protein Test strip Ql (U)Ord ered By: Dr. Verduzco on 12-05-2022 Protein Ql (U) Negative Negative [facility] Squamous epithelial cells de tection in urine sediment by light microscopyOrdered By: Dr. Verduzco on 12-05-2022 Epithelial cells.squamous LM Ql (Urine sed) 0-5 SEEN /hpf 5-10 [facility] Urine blood detectionOrdered By: Dr. Verduzco on 12-05-2022 RBC Ql (U) 10 /ul Negative [facility] RBC Ql (U) 0-5 SEEN /hpf 0-5 [facility] Urine clarityOrdered By: Dr. Verduzco on 12-05-2022 Clarity (U) Sl. Cloudy Clear [facility] Urine color determinationOrd ered By: Dr. Verduzco on 12-05-2022 Color (U) Yellow Yellow [facility] Urine glucose detectionOrder ed By: Dr. Verduzco on 12-05-2022 Glucose Ql (U) Normal mg/dl Normal [facility] Urine leukocyte esterase det ection by dipstickOrdered By: Dr. Verduzco on 12-05-2022 Leukocyte esterase Test strip Ql (U) Negative Negative [facility] Urine pHOrdered By: Dr. Mauricio lan on 12-05-2022 pH (U) 8.0 [pH] 5.0 - 8.0 [facility] Urine sediment bacteria coun t by microscopy (number/high power field)Ordered By: Dr. Verduzco on 12-05-2022 Bacteria LM.HPF (Urine sed) [#/Area] 0 /[HPF] None Seen [facility] Urine specific gravity measu rementOrdered By: Dr. Verduzco on 12-05-2022 Specific gravity (U) [Rel density] 1.010 1.002-1.030 [facility] Urobilinogen Auto test strip Ql (U)Ordered By: Dr. Verduzco on 12-05-2022 Urobilinogen Ql (U) Normal mg/dl Normal [facility] Culture, urineOrdered By: Dr Jayesh Verduzco on 08-31-2022 Bacteria identified Cx Nom (U) Positive [facility] Basophil percentageOrdered B y: Dr. Verduzco on 08-27-2022 Bilirubin [Mass/Vol] 0.40 mg/dL 0.20-1.00 [facility] Comment on above: For patients on eltr ombopag therapy, use of Dimension [facility] TBIL is not recommended. Chloride [Moles/Vol] 107 mmol/L 98-107 [facility] Cholesterol [Mass/Vol] 218 mg/dL <200 [facility] Comment on above: <200 mg/dL Desirable 200-240 mg/dL Borderline >240 mg/dL High Risk Glucose [Mass/Vol] 89 mg/dL 74-106 [facility] Potassium [Moles/Vol] 4.0 mmol/L 3.5-5.1 [facility] Protein [Mass/Vol] 7.5 g/dL 6.4-8.2 [facility] Sodium [Moles/Vol] 140 mmol/L 136-145 [facility] Triglyceride [Mass/Vol] 165 mg/dL <199 [facility] Comment on above: The drugs N-Acetylcy steine and Metamizole may falsely depress this assay.Serum Triglycerides Reference Interval Normal <150 mg/dL Borderline high 150 - 199 mg/dL High 200 - 499 mg/dL Very High > or = 500 mg/dL Laboratory - Chemistry and C hemistry - challengeOrdered By: Dr. Verduzco on 08-27-2022 ALP [Catalytic activity/Vol] 66 U/L 45-117 [facility] ALT [Catalytic activity/Vol] 27 U/L 13-56 [facility] CO2 [Moles/Vol] 25.0 mmol/L 21.0-32.0 [facility] Globulin (S) [Mass/Vol] 4.1 g/dL 2.2-4.2 [facility] Urea nitrogen/Creatinine [Mass ratio] 16.7 mg/mg 10-20 [facility] No Panel InformationOrdered By: Dr. Verduzco on 08-27-2022 Estimated GFR (MDRD) Amer 118 mL/min >60 [facility] Comment on above: GFR Calc Estimated GFR (MDRD) Non-Af Amer 97 mL/min >60 [facility] Comment on above: Non- GFR Calc Thyroid Stimulating Hormone (TSH) 1.38 uIU/mL 0.358-3.74 [facility] Vitamin D 25-Hydroxy 16.8 ng/mL [facility] Comment on above: Vitamin D 25(OH) Sta tus Range Deficiency <20 ng/mL (50nmol/L) Insufficiency 20 - 30 ng/mL (50 - 75 nmol/L) Sufficiency 30 - 100 ng/mL (75 - 250 nmol/L) Toxicity >100 ng/mL (>250 nmol/L) Serum or plasma albumin cherelle urement (mass/volume)Ordered By: Dr. Verduzco on 08-27-2022 Albumin [Mass/Vol] 3.4 g/dL 3.2-5.0 [facility] Serum or plasma albumin/glob ulin mass ratioOrdered By: Dr. Verduzco on 08-27-2022 Albumin/Globulin [Mass ratio] 0.8 {ratio} 0.9-2.4 [facility] Serum or plasma calcium cherelle urement (mass/volume)Ordered By: Dr. Verduzco on 08-27-2022 Calcium [Mass/Vol] 9.0 mg/dL 8.5-10.1 [facility] Serum or plasma cholesterol in HDL measurement (mass/volume)Ordered By: Dr. Verduzco on 08-27-2022 Cholesterol in HDL [Mass/Vol] 71 mg/dL >40 [facility] Comment on above: The drugs N-Acetylcy steine and Metamizole may falsely depress this assay. Reference Range HDL <40 mg/dL Low HDL Cholesterol HDL >or= 60 mg/dL High HDL Cholesterol Serum or plasma cholesterol in VLDL measurement (mass/volume)Ordered By: Dr. Verduzco on 08-27-2022 Cholesterol in VLDL [Mass/Vol] 33 mg/dL 5-40 [facility] Serum or plasma creatinine m easurement (mass/volume)Ordered By: Dr. Verduzco on 08-27-2022 Creatinine [Mass/Vol] 0.66 mg/dL 0.55-1.02 [facility] Comment on above: The validity of the calculated GFR & GFRAA in patients over 70 years has not been determined. Clinical correlation is essential. Serum or plasma low density lipoprotein (LDL) cholesterol measurement (mass/volume)Ordered By: Dr. Verduzco on 08-27-2022 Cholesterol in LDL [Mass/Vol] 114 mg/dL 0-130 [facility] Serum or plasma urea nitroge n measurement (mass/volume)Ordered By: Dr. Verduzco on 08-27-2022 Urea nitrogen [Mass/Vol] 11 mg/dL 7-18 [facility] Thin prep Papanicolaou smear with manual screeningOrdered By: Dr. Verduzco on 08-27-2022 Thin prep Papanicolaou smear with manual screening 16 U/L 15-37 [facility] Thin prep Papanicolaou smear with manual screening 8 5-15 [facility] Cervical or vagninal specime n microscopic examination by cytology stain (reported asOrdered By: Charlette Cuello on 06-15-2022 Cytology report Cyto stain Doc (Cvx/Vag) Comment . [facility] Comment on above: The Pap smear [...] DNA Probe+sig amp Ql (Cvx) Negative Negative [facility] Comment on above: This nucleic acid am plification test detects fourteen high-risk HPV types (16,18,31,33,35,39,45,51,52,56,58,59,66,68)without differentiation.Performed at: [address] [id number] Director: Neda Dutton MD, Phone: [phone] at: =[address] [id number] Director: Neda Dutton MD, Phone: [phone] Laboratory - CytologyOrdered By: Charlette Cuello on 06-15-2022 Chemists Cyto stain Nom (Cvx/Vag) [ID] Comment . [facility] Comment on above: Roxanne [place], Cytot echnologist (ASCP) Laboratory - Miscellaneous t estsOrdered By: Charlette Cuello on 06-15-2022 Service comment (Unsp spec) [Interp] Comment . [facility] Comment on above: This liquid based Th inPrep(R) pap test was screened withthe use of an image guided system. Service comment (Unsp spec) [Interp] . . [facility] No Panel InformationOrdered By: Charlette Cuello on 06-15-2022 Pathology report final diagnosis Narrative Comment . [facility] Comment on above: NEGATIVE FOR INTRAEP ITHELIAL LESION OR MALIGNANCY. Laboratory - Microbiology an d Antimicrobial susceptibilityon 02-09-2022 SARS-CoV-2 (COVID-19) RNA JUAN MANUEL+probe Ql (Unsp spec) Negative Not Detect [facility] Work Phone: Comment on above: Normal Reference Ran ge: Not DetectedMethod:(RT-PCR) real-time reverse transcriptase PCRLuminex ResiModel Instrument*The Food and Drug Administration (FDA) has issued an Emergency Use Authorization (EAU) for the [place] SARS-CoV-2 Assay for the rapid detection of [...] percentageon 2021 Chloride [Moles/Vol] 107 mmol/L 98-107 [facility] Work Phone: Glucose [Mass/Vol] 126 mg/dL 74-106 [facility] Work Phone: Comment on above: Fasting Glucose resu lt greater than or equal to 126 mg/dL suggests DIABETES MELLITUS per A.D.A. criteria. Potassium [Moles/Vol] 4.4 mmol/L 3.5-5.1 [facility] Work Phone: Sodium [Moles/Vol] 137 mmol/L 136-145 [facility] Work Phone: WBC (Bld) [#/Vol] 12.9 10*3/uL 4.4-11.0 [facility]: Blood erythrocytes count (nu mber/volume)on 10-18-2021 RBC (Bld) [#/Vol] 3.84 10*6/uL 4.2-5.4 [facility] Work [facility]: Blood hemoglobin measurement (mass/volume)on 10-18-2021 Hemoglobin (Bld) [Mass/Vol] 11.7 g/dL 12.0-15.0 [facility] Work Phone: Blood platelet mean volumeon 10-18-2021 Platelet mean volume (Bld) [Entitic vol] 10.9 fL 6.2-12.0 [facility] Work Phone: Determination of erythrocyte mean corpuscular volume (MCV)on 10-18-2021 MCV (RBC) [Entitic vol] 92.7 fL 81-99 [facility] Work Phone: Hematocrit Auto (Bld) [Volum e fraction]on 10-18-2021 Hematocrit (Bld) [Volume fraction] 35.6 % 37-47 [facility] Work Phone: Laboratory - Chemistry and C hemistry - challengeon 10-18-2021 CO2 [Moles/Vol] 24.0 mmol/L 21.0-32.0 [facility] Work Phone: Urea nitrogen/Creatinine [Mass ratio] 11.9 mg/mg 10-20 [facility] Work Phone: Laboratory - Hematology and Cell countson 10-18-2021 Erythrocyte distribution width (RBC) [Entitic vol] 43.2 fL 35.1-43.9 [facility] Work Phone: Erythrocyte distribution width (RBC) [Ratio] 12.8 % 11.6-14.6 [facility] Work Phone: MCH (RBC) [Entitic mass] 30.5 pg 27.0-32.0 [facility] Work Phone: MCHC Auto (RBC) [Mass/Vol]on 10-18-2021 MCHC (RBC) [Mass/Vol] 32.9 g/dL 32-36 [facility] Work Phone: No Panel Informationon 10-18 Estimated Creatinine Clearance Calc 74.43 ml/min [facility] Work Phone: Estimated GFR (MDRD) Amer 88 mL/min >60 [facility] Work Phone: Comment on above: GFR Calc Estimated GFR (MDRD) Non-Af Amer 73 mL/min >60 [facility] Work Phone: Comment on above: Non- GFR Calc Platelets bldon 10-18-2021 Platelets (Bld) [#/Vol] 239 10*3/uL 150-450 [facility] Work Phone: Serum or plasma calcium cherelle urement (mass/volume)on 10-18-2021 Calcium [Mass/Vol] 9.2 mg/dL 8.5-10.1 [facility] Work Phone: Serum or plasma creatinine m easurement (mass/volume)on 10-18-2021 Creatinine [Mass/Vol] 0.84 mg/dL 0.55-1.02 [facility] Work Phone: Comment on above: The validity of the calculated GFR & GFRAA in patients over 70 years has not been determined. Clinical correlation is essential. Serum or plasma urea nitroge n measurement (mass/volume)on 10-18-2021 Urea nitrogen [Mass/Vol] 10 mg/dL 7-18 [facility] Work Phone: Thin prep Papanicolaou smear with manual screeningon 10-18-2021 Thin prep Papanicolaou smear with manual screening 6 5-15 [facility] Work Phone: Glucose Glucometer (BldC) [M ass/Vol]on 10-17-2021 Glucose [Mass/Vol] 111 mg/dL 74-106 [facility] Work Phone: Comment on above: MANAGEMENT OF PATIEN T CARE PER NURSING PROTOCOL Absolute lymphocyte counton 10-05-2021 Lymphocytes Auto (Unsp spec) [#/Vol] 1.45 10*3/uL 0.83-4.51 [facility] Work Phone: Basophil percentageon 2021 Basophils/100 WBC (Bld) 1.4 % 0-1 [facility] Work Phone: Eosinophils/100 WBC (Bld) 3.3 % 0-5 [facility] Work Phone: Neutrophils (Bld) [#/Vol] 2.9 10*3/uL 2.0-7.7 [facility] Work Phone: Neutrophils/100 WBC (Bld) 56.7 % 47-70 [facility] Work Phone: Blood lymphocytes/100 leukoc yteson 10-05-2021 Lymphocytes/100 WBC (Bld) 28.0 % 19-41 [facility] Work Phone: Blood monocytes/100 leukocyt eson 10-05-2021 Monocytes/100 WBC (Bld) 10.2 % 0-10 [facility] Work Phone: INR in Blood by Coagulation assayon 10-05-2021 INR Coag (Bld) [Relative time] 1.0 {INR} [facility] Work Phone: Laboratory - Chemistry and C hemistry - challengeon 10-05-2021 Magnesium [Mass/Vol] 2.2 mg/dL 1.6-2.6 [facility] Work Phone: Laboratory - Coagulationon 0 10-05-2021 aPTT Coag (Bld) [Time] 24.9 s 24.1-36.2 [facility] Work Phone: PT Coag (PPP) [Time] 12.3 s 11.7-14.9 [facility] Work Phone: Laboratory - Hematology and Cell countson 10-05-2021 Immature granulocytes/100 WBC (Bld) 0.400 % 0.0-0.9 [facility] Work Phone: Comment on above: IG% - Immature Granu locytes (promyelocytes, myelocytes and metamyelocytes) > 1% indicates that a LEFT SHIFT is Present. Nucleated RBC/100 WBC (Bld) [Ratio] 0 % 0-5 [facility] Work Phone: No Panel Informationon 10-05 Fructosamine 230 umol/L 0-285 [facility] Work Phone: Comment on above: Published reference interval for apparently healthysubjects between age 20 and 60 is 205 - 285 umol/L and in apoorly controlled diabetic population is 228 - 563 umol/Lwith a mean of 396 umol/L.Performed at: [address] [id number] Director: Erwin Alberto PhD, Phone: [phone] Nasal Screen MRSA/MSSA [facility] Work Phone: No Panel Information Nasal Screen MRSA/MSSA [facility] [facility] Work Phone: Vital Signs Date Time Vital Sign Value Performing Clinician Faci lity 11-29-2021 12:54-0400 Body height 175.[address] Bruce Verduzco Work Phone: [facility] Work Phone: 11-29-2021 12:54-0400 Body mass index (BMI) [Ratio] 35.4 kg/m2 Dr. Bruce Verduzco Work Phone: [facility] Work Phone: 11-29-2021 12:54-0400 Body weight 108.[address] Bruce Verduzco Work Phone: [facility] Work Phone: 10-18-2021 17:45-0400 Body temperature 99.7 [degF] Dr. Bruce Verduzco Work Phone: [facility] Work Phone: 10-18-2021 17:45-0400 Diastolic blood pressure 74 mm[Hg] Dr. Bruce Verduzco Work Phone: [facility] Work Phone: 10-18-2021 17:45-0400 Heart rate 92 /min Dr. Bruce Verduzco Work Phone: [facility] Work Phone: 10-18-2021 17:45-0400 Respiratory rate 18 /min Dr. Bruce Verduzco Work Phone: [facility] Work Phone: 10-18-2021 17:45-0400 SaO2% (BldA) [Mass fraction] 97 % Dr. Bruce Verduzco Work Phone: [facility] Work Phone: 10-18-2021 17:45-0400 Systolic blood pressure 161 mm[Hg] Dr. Bruce Verduzco Work Phone: [facility] Work Phone: 10-17-2021 12:48-0400 Body height 175.[address] Bruce Verduzco Work Phone: [facility] Work Phone: 10-17-2021 12:48-0400 Body mass index (BMI) [Ratio] 36.4 kg/m2 Dr. Bruce Verduzco Work Phone: [facility] Work Phone: 10-17-2021 12:48-0400 Body weight 111.[address] Bruce Verduzco Work Phone: [facility] Work Phone: 09-25-2021 09:38-0400 Body mass index (BMI) [Ratio] 37.1 kg/m2 Dr. Bruce Verduzco Work Phone: [facility] Work Phone: 09-25-2021 09:38-0400 Body weight 112.[address] Bruce Verduzco Work Phone: [facility] Work Phone: 09-25-2021 09:38-0400 Body mass index (BMI) [Ratio] 37.1 kg/m2 Dr. Bruce Verduzco Work Phone: [facility] Work Phone: 09-25-2021 09:38-0400 Body weight 112.[address] Bruce Verduzco Work Phone: [facility] Work Phone: Encounters Encounter Date Encounter Type Care Provider Facility Start: 03-01-2025 ambulatory Amadou Huggins lity:[facility] Start: 02-24-2025 [facility] Start: 02-08-2025 End: 02-08-[address] Amadou Verduzco MD Work Phone: -[facility] Start: 02-08-2025 End: 02-08-2025 Patient encounter procedure Shelton Lara NP-Carlos -[facility] Start: 02-08-2025 End: 02-08-2025 ambulatory Amadou Verduzco Facility:[facility] Start: 12-09-2024 End: 12-09-[address] Amadou Verduzco MD Work Phone: [facility] Work Phone: Start: 12-09-2024 End: 12-09-[address] Amadou Verduzco MD -[facility] Start: 12-09-2024 End: 12-09-2024 ambulatory Amadou Verduzco Facility:[facility] Start: 08-02-2023 End: 08-02-2023 ambulatory [facility] Work Phone: Start: 08-02-2023 End: 08-02-2023 Patient encounter procedure [facility]Outpatient Breast Imaging Work Phone: Start: 01-25-2023 Non-patient / Non-visit Dr. Bruce Verduzco Work Phone: [facility] Start: 01-25-2023 End: 01-25-[address] Bruce Verduzco Work Phone: [facility] Work Phone: Start: 01-25-2023 End: 01-25-[address] Bruce Verduzco Work Phone: [facility]Cardiovascula r Services Work Phone: Start: 01-08-2023 End: 01-08-2023 ambulatory [facility] Work Phone: Start: 01-08-2023 End: 01-08-2023 Patient encounter procedure [facility] Start: 12-05-2022 End: 12-05-2022 ambulatory [facility] Work Phone: Start: 12-05-2022 End: 12-05-2022 Patient encounter procedure [facility] Start: 08-30-2022 End: 08-30-2022 ambulatory [facility] Work Phone: Start: 08-30-2022 End: 08-30-2022 Patient encounter procedure [facility]-Laboratory, Specimen Start: 08-27-2022 End: 08-27-2022 ambulatory [facility] Work Phone: Start: 08-27-2022 End: 08-27-2022 Patient encounter procedure [facility] Start: 07-04-2022 End: 07-04-2022 ambulatory [facility] Work Phone: Start: 07-04-2022 End: 07-04-2022 Patient encounter procedure [facility]Outpatient Breast Imaging Start: 06-15-2022 End: 06-15-2022 ambulatory [facility] Work Phone: Start: 06-15-2022 End: 06-15-2022 Patient encounter procedure [facility]-Laboratory, Specimen Start: 02-09-2022 End: 02-09-[address] Bruce Verduzco Work Phone: [facility]-Laboratory, Specimen Start: 01-10-2022 End: 01-10-[address] Bruce Verduzco Work Phone: [facility] Start: 12-28-2021 End: 12-28-[address] Bruce Verduzco Work Phone: [facility]-Physical Therapy Start: 11-29-2021 End: 11-29-[address] Bruce Verduzco Work Phone: [facility] Start: 11-01-2021 End: 11-01-[address] Bruce Verduzco Work Phone: [facility] Start: 10-18-2021 Non-patient / Non-visit Dr. Bruce Verduzco Work Phone: [facility] Start: 10-17-2021 End: 10-18-2021 Evaluation and management of inpatient Dr. Bruce Verduzco Work Phone: [facility]-Medical Surgical 3 Start: 10-17-2021 Non-patient / Non-visit Dr. Bruce Verduzco Work Phone: [facility] Start: 10-06-2021 End: 10-06-[address] Bruce Verduzco Work Phone: [facility] Start: 10-05-2021 Non-patient / Non-visit Dr. Bruce Verduzco Work Phone: [facility] Start: 09-29-2021 End: 09-29-[address] Bruce Verduzco Work Phone: [facility]-Cat Scan, [facility] Start: 09-28-2021 End: 09-28-[address] Bruce Verduzco Work Phone: [facility]-Physical Therapy Start: 09-28-[address] Mauricio Verduzco Work Phone: [facility]Physical Therapy Start: 09-25-2021 End: 09-25-[address] Bruce Verduzco Work Phone: [facility] Procedures Date Procedure Procedure Detail Performing Clinician Start: 02-08-[address] Bruce Verduzco MD Work Phone: Comment on above: According to the National Academy of Cli nical Biochemistry,the reference interval for Thyroglobulin (TG) should berelated to euthyroid patients and not for patients whounderwent thyroidectomy. TG reference intervals for thesepatients depend on the residual mass of the thyroid tissueleft after surgery. Establishing a post-operative baselineis recommended. The assay limit of quantitation is 0.1ng/mLThyroglobulin measured by [facility] ImmunometricAssayPerformed at: - [facility] [id number] Director: Erwin Alberto PhD, Phone: [phone] Start: 02-08-[address] Carlos Verduzco MD Work Phone: Comment on above: Thyroglobulin Antibody measured by [employer] ([employer]) radha gogamingoMethodologyIt should be noted that the presence of thyroglobulinantibodies may not be pathogenic nor diagnostic, especiallyat very low levels. The assay pr manager has found thatfour percent of individuals without evidence of thyroiddisease or autoimmunity will have positive TgAb levels upto 4 IU/mL. Start: 08-02-2023 Screening mammography Start: 01-25-2023 Radionuclide imaging of perfusion of myocardium under exercise stress Dr. Bruce Verduzco Work Phone: Start: 12-05-2022 Bacteria identified in Urine by Culture Start: 12-05-2022 Urine culture Start: 07-04-2022 Screening mammography Start: 11-29-2021 Radiologic examination of knee Dr. Mauricio Verduzco Work Phone: Start: 10-17-2021 Radiologic examination of knee Dr. Mauricio Verduzco Work Phone: Start: 10-17-2021 Total Knee Replacement Robotic Arm Cornelio (Right) Dr. Bruce Verduzco Work Phone: Start: 10-13-2021 H/O: artificial joint Status post knee replacement Comment on above: Right total knee arthroplasty CT guided Robotic Assisted. Dr. Finley Start: 10-13-2021 History of operative procedure on knee Status post knee replacement Dr. Bruce Verduzco Work Phone: Start: 10-05-2021 Nasal Screen MRSA/MSSA Dr. Bruce Verduzco Work Phone: Start: 09-29-2021 MRI of lower extremity Dr. Bruce Verduzco Work Phone: Start: 09-25-2021 Radiologic examination of knee Dr. Mauricio Verduzco Work Phone: Bacteria identified in Urine by Culture Nasal Screen MRSA/MSSA Dr. Carlso Verduzco Work Phone: Urine culture Urine culture Plan of Treatment Date Care Activity Detail Author Start: 10-18-2021 Patient discharge [facility] Work Phone: Start: 10-17-2021 Anesth open/surg arthrs total knee arthroplasty ANESTH KNEE ARTHROPLASTY [facility] Work Phone: Start: 10-17-2021 Arthrp kne condyle&platu medial&lat compartments TOTAL KNEE ARTHROPLASTY [facility] Work Phone: Start: 10-17-2021 Injection aa&/strd femoral nerve NJX AA&/STRD FEMORAL NERVE [facility] Work Phone: Start: 10-17-2021 Following clinical pathway protocol [facility] Work Phone: Start: 10-17-2021 Provision of overbed trapeze [facility] Work Phone: Start: 10-17-2021 Admission procedure [facility] Work Phone: Start: 10-17-2021 Ambulation therapy management [facility] Work Phone: Start: 10-17-2021 Application of antithromboembolic stockings [facility] Work Phone: Start: 10-17-2021 Application of device [facility] Work Phone: Start: 10-17-2021 Application of elastic bandage [facility] Work Phone: Start: 10-17-2021 Application of intermittent pneumatic compression device [facility] Work Phone: Start: 10-17-2021 Assessment of risk of venous thromboembolism [facility] Work Phone: Start: 10-17-2021 Catheterization of vein [facility] Work Phone: Start: 10-17-2021 Exercises [facility] Work Phone: Start: 10-17-2021 Following clinical pathway protocol [facility] Work Phone: Start: 10-17-2021 Incentive spirometry [facility] Work Phone: Start: 10-17-2021 Introduction of urinary catheter [facility] Work Phone: Start: 10-17-2021 Measuring intake and output [facility] Work Phone: Start: 10-17-2021 Neurovascular assessment [facility] Work Phone: Start: 10-17-2021 Patient education [facility] Work Phone: Start: 10-17-2021 Procedure discontinued [facility] Work Phone: Start: 10-17-2021 Provision of activity privileges [facility] Work Phone: Start: 10-17-2021 Referral to occupational therapist [facility] Work Phone: Start: 10-17-2021 Referral to service [facility] Work Phone: Start: 10-17-2021 Vital signs measurements [facility] Work Phone: Start: 10-17-2021 Wound care [facility] Work Phone: Start: 10-17-2021 [facility] Work Phone: Path report.final Dx Spec [facility] Work Phone: Patient referral [facility] Work Phone: Immunizations Immunization Date Immunization Notes [facility] Provider [facility] Covid (Pfizer) Dr. Gopal Verduzco Work Phone: [facility] Payers Date Payer Category Payer Private Health Insurance [id number] 2024 Self-pay [id number] Medicaid [id number] Private Health Insurance [id number] Unknown [id number] Unknown [id number] Unknown [id number] Unknown [id number] Social History Date Type Detail Facility [facility] Work Phone: Start: 10-06-2021 End: 01-10-2022 Tobacco smoking status NHIS Unknown if ever smoked [facility] Start: 1960 Sex Assigned At Female W [facility] Start: 11-28-2023 Tobacco smoking stat us NHIS Ex-smoker (finding) [facility] Medical Equipment Procedure Code Equipment Code Equipment Origin al Text Equipment Identifier Dates ([id number]) Metal-backed pat riaz prosthesis [id number] FDA Start: 10-17-2021 ([id number]) Coated knee femu r prosthesis ()[id number] FDA Start: 10-17-2021 ([id number]) Coated knee tibi a prosthesis [id number] FDA Start: 10-17-2021 ([id number]) Tibial insert [id number] FDA Start: 10-17-2021 Goals Date Patient Goal Desired Activity /State Functional Status Date Assessment Result Facility 10-18-2021 Functional status Activity Abili ty With Assist of 1 [facility] Work Phone: 10-18-2021 Functional status Ambulates;Mir r;Bathroom Privilege [facility] Work Phone: Mental Status Date Assessment Result Facility 10-18-2021 Cognitive function Level Of Cons ciousness Awake;Alert;Appropriate [facility] Work Phone: 10-18-2021 Cognitive function Appropriate [facility] Work Phone: 10-18-2021 Cognitive function Voice/Name [facility] Work Phone: Clinical Note 06-15-2022 Note Date & Type Note Facility 06-15-2022 Note [facility] Work Phone: Pap Smear Specimen Adequacy June 15, 2022 2:05pm Comment . Satisfactory for evaluation. Comment on above: Satisfactory for cain luation. Clinical Note 06-15-2022 Note Date & Type Note Facility 06-15-2022 Note [facility] Pap Smear Specimen Adequacy June 15, 2022 2:05pm Comment . Satisfactory for evaluation. Comment on above: Satisfactory for cain luation. Clinical Note 06-15-2022 Note Date & Type Note Facility 06-15-2022 Note [facility] Pap Smear Specimen Adequacy June 15, 2022 2:05pm Comment . Satisfactory for evaluation. Comment on above: Satisfactory for cain luation. Evaluation note 10-13-2021 Note Date & Type Note Facility 10-13-2021 Evaluation note Diagnosis Onset Date Right knee DJD acute Right knee pain acute Right knee pain acute Other acute postprocedural pain acute Status post knee replacement October, acute Status post knee replacement October, acute [facility] Work Phone: Evaluation note 10-13-2021 Note Date & Type Note Facility 10-13-2021 Evaluation note Diagnosis Onset Date Other acute postprocedural pain acute Status post knee replacement October, acute Status post knee replacement October, acute Orthopedic aftercare acute [facility] Work Phone: Evaluation note Note Date & Type Note Facility Evaluation note Diagnosis Onset Date Right knee DJD acute Right knee pain acute Right knee pain acute [facility] Work Phone: Evaluation note Note Date & Type Note Facility Evaluation note No assessment information availa [facility] Work Phone: Reason for referral (narrative) Note Date & Type Note Facility Reason for referral (narrative) No reason for referral information available [facility] Work Phone: Chief Complaint and Reason [...] W DILEEP right knee RIGHT KNEE xray TRDR JASON Jimenez Reason for Visit Right knee DJD Right knee pain Right knee pain Other acute postprocedural pain Status post knee replacement Status post knee replacement Chief Complaint right knee RIGHT KNEE xray TRDR JASON Jimenez RIGHT KNEE Reason for Visit Other acute [...] No October 17, 2021 12:48pm Power of Director Cost No October 17 12:48pm Advance Directive Response Recorded Date/ Time Living Will No October 17, 2021 11:48am Power of Director Cost No October 17 11:48am Summary Purpose Additional [...] Verduzco MD Primary Care Provider Activ e KANE Adame Attending Provider Active Team Status: Inactive Member [...] December 09, 2024 End: December 09, 2024 Team Status: Active Member Role/Relationship Status Dates Dr. Amadou Verduzco MD Family Provider Active Dr. Amadou Verduzco MD Primary Care Provider Acti ve Team Status: Inactive Member Role/Relationship Status Dates Dr. Amadou Verduzco MD Primary Care Provider Acti ve Start: December 09, 2024 End: December 09, 2024 Dr. Amadou Verduzco MD Attending Provider Active Start: December 09, 2024 End: December 09, 2024 Dr. Amadou Verduzco MD Referring Provider Active Start: December 09, 2024 End: December 09, 2024 Team Status: Inactive Member Role/Relationship Status Dates Dr. Amadou Verduzco MD Primary Care Provider Acti ve Start: February 08, 2025 End: February 08, 2025 [facility] COGENERATION TECHNICIAN, COGENERATION TECHNICIAN-C Attending Provider Active Start: February 08, 2025 End: February 08, 2025 INFORMATION SOURCE (unrecogn ized section and content) DATE CREATED AUTHOR 02/26/2025 [facility] FOR RECORDS PERTAINING TO PATIENTS WHO ARE [...] BE BASED ON THE PRIMARY CLINICAL RECORDS. [facility] [employer] [facility]. provides no warranty or guarantee of the accuracy or completeness of information in this document.
== END | disposition home or self-care (01) ==
LOC: OPBI 10:44
PROVIDERS: PCP Family Medicine
DX: Z12.31 Encounter for screening mammogram for malignant neoplasm of breast (principal)
CPT/HCPCS: 77063; 77067

== ENCOUNTER → 2025-03-12 | Outpatient (CLI) | payer OTHER, SELFPAY ==
--- NOTE | 2025-03-12 10:21 | US_ITS ---
PROCEDURE: TRANSVAGINAL NON- REASON FOR EXAM: N94.89 - OTHER SPECIFIED CONDITIONS ASSOCIATED WITH FEMALE GENIT Left lower quadrant pain. TECHNIQUE: Procedure Code: USTVAG Modality: US Procedure: None FINDINGS: Measurements: Uterus: The patient is status post hysterectomy Right Ovary: Not visualized. Left Ovary: Not visualized. TRANSABDOMINAL: Uterus: Status post hysterectomy. Right ovary: Not visualized. Left ovary: Not visualized. Other: No large pelvic mass identified. Transvaginal sonography was performed as transabdominal imaging did not explain the patient's presenting symptoms. TRANSVAGINAL: Status post hysterectomy. Right ovary: Not visualized. Left ovary: Not visualized. Other adnexal findings: Cul-de-sac: No free intraperitoneal fluid identified. Tenderness: No tenderness US/Transvaginal Non- IMPRESSION: Status post hysterectomy. The ovaries were not visualized. Reading Location: [id number]
== END | disposition home or self-care (01) ==
LOC: US 10:17
PROVIDERS: PCP Family Medicine
DX: N94.89 Other specified conditions associated with female genital organs and menstrual cycle (principal)
CPT/HCPCS: 76830